=== PATIENT | female | born 1960 | race Caucasian/White ===

== ENCOUNTER 2019-04-16 10:16 | Emergency (ER) | payer OTHER, MEDICAID, SELFPAY ==
[2019-04-16 10:25] VITALS: BP 139/93; PULSE 83; RESP 18; TEMP 36.9; O2SAT 98
[2019-04-16 11:11] VITALS: BP 117/77; PULSE 70; RESP 18; O2SAT 100
--- NOTE | 2019-04-16 11:18 | DI.US.S_ITS ---
PROCEDURE: US PERIPH VENOUS UP EXTREM LT INDICATIONS: JUGULAR VEIN ENLARGEMENT TECHNIQUE: Real-time imaging, as well as color and pulse Doppler interrogation, was performed of the left upper extremity deep veins from the inferior neck to the antecubital fossa. COMPARISON: None. FINDINGS: The internal jugular vein, visualized portions of the subclavian vein, axillary, and brachial veins are free of intraluminal thrombus. Where physically possible, the veins are normally compressible. Color and pulse Doppler demonstrate normal intraluminal flow, with expected phasicity and pulsatility. Additional scanning of the cephalic and basilic veins of the superficial system demonstrate normal compressibility, without thrombus. IMPRESSION: Negative for deep venous thrombosis. Dictated by: Roberto Mendoza M.D. on 04/16/2019 at 12:08 Approved by: Roberto Mendoza M.D. on 04/16/2019 at 12:09
--- NOTE | 2019-04-16 11:24 | ED_ITS ---
HPI - Skin/Abscess/Foreign Bdy <HELEN Everett - Last Filed: 04/16/19 20:20> General Chief complaint: Skin/Abscess/Foreign Body Stated complaint: POSSIBLE CLOT Time Seen by Provider: 04/16/19 11:01 Source: patient Mode of arrival: ambulatory Limitations: no limitations History of Present Illness HPI narrative: 58-year-old female with history of hypertension and anxiety, presents emergency department today stating she noticed an increase in size of her left jugular vein since April 07 after taking a picture. States today she woke up and experienced some aching 2/10 pain in her lower left forearm that was better when she puts pressure on her arm. Patient was worried about cardiac issues as her mother and father both underwent triple bypass surgeries. Patient denies headaches, double vision, vision loss, facial or asymmetry, difficulty swallowing, neck pain, chest pain, shortness of breath, abdominal pain, nausea, vomiting, stool changes, or fevers. Patient also denies swelling of the legs or orthopnea. She states she feels better already since she has been here waiting in the emergency department. Related Data Home Medications Medication Instructions Recorded Confirmed clonidine HCl PO 04/15/19 04/15/19 Allergies Allergy/AdvReac Type Severity Reaction Status Date / Time No Known Drug Allergies Allergy Verified 04/15/19 18:00 Review of Systems <HELEN Everett - Last Filed: 04/16/19 20:20> Review of Systems REVIEW OF SYSTEMS: GENERAL: Denies fever, chills, malaise, or wt. loss. HENT: No head trauma, hearing loss, rhinorrhea, epistaxis, sinus pressure, sore throat, or dysphagia. EYES: No loss of vision, double vision, eye pain, or irritation. NECK: Complains of swollen neck pain, see HPI. CARDIOVASCULAR: No chest pain, palpitations, edema, syncope, or orthopnea. RESPIRATORY: No shortness of breath, cough, or wheeze. GASTROINTESTINAL: No change in appetite, nausea, vomiting, stool changes, or melena. GENITOURINARY: No flank pain, urinary incontinence, hesitancy, frequency, or dysuria. No vaginal discharge or dyspareunia. MUSCULOSKELETAL: Complains of lower arm pain comes HPI. INTEGUMENTARY: No rash, lesions, or pruritus. NEURO: No numbness, tingling, memory loss, confusion, or headaches. PSYCH: No behavior or mood changes. ENDOCRINOLOGY: No hair loss of temperature intolerance. HEMATOLOGY: No easy bruising. LYMPHATIC: No lymphadenopathy. PFSH <HELEN Everett - Last Filed: 04/16/19 20:20> Medical History HTN (hypertension) (Acute) Social History Smoking Status: Never smoker Social History Smoking Status: Never smoker Exam <HELEN Everett - Last Filed: 04/16/19 20:20> Initial Vital Signs Initial Vital Signs: Vital Signs Temperature 98.4 F 04/16/19 10:25 Pulse Rate 83 04/16/19 10:25 Respiratory Rate 18 04/16/19 10:25 Blood Pressure 139/93 H 04/16/19 10:25 Pulse Oximetry 98 04/16/19 10:25 PHYSICAL EXAMINATION: GENERAL: Well groomed, alert, and cooperative. Answers questions promptly and appropriately. Vital signs noted. HENT: Normocephalic, atraumatic. Ear canals patent, tympanic membranes normal without irritation or effusion, crisp light reflex present. Oral mucosa is pink and moist, no caries or lesions present. Pharynx without erythema. EYES: PERRLA, conjunctiva pink, sclera white, no periorbital swelling. NECK: Full range of motion, nontender to palpation. Very slight distention of left jugular vein, the slightly increases when she turns her head. LYMPH: No lymphadenopathy. CHEST: Normal to inspection and without deformities. CARDIOVASCULAR: S1 and S2 sounds normal. Regular rate and rhythm, no murmurs, clicks, or bruits. No pedal edema. RESPIRATORY: Normal respiratory rate, trachea midline, airway patent. No stridor, nasal flaring or accessory muscle use. Lungs are clear in all alexander without wheeze, rhonchi, or crackles. GASTROINTESTINAL: Bowel sounds normoactive. Abdomen is soft and non-tender. No organomegaly. MUSCULOSKELETAL: Normal gait and coordination. Equal tone and mass bilaterally. No spinal tenderness or deformities. EXTREMITIES: CMS intact. Moves all extremities. SKIN: Warm, dry, soft, appropriate color for ethnicity. No lesions, rashes, or wounds. NEURO: Alert and Oriented X 3. Good coordination. No ataxia, or sensory deficits, or cognitive issues. PSYCH: Initially patient appears very anxious, after test results were relayed to her she appeared much more calm. Patient also endorsed that she was feeling much better after the test results. <Tammy Gonsales DO - Last Filed: 04/19/19 18:05> Initial Vital Signs Initial Vital Signs: Vital Signs Temperature 98.4 F 04/16/19 10:25 Pulse Rate 83 04/16/19 10:25 Respiratory Rate 18 04/16/19 10:25 Blood Pressure 139/93 H 04/16/19 10:25 Pulse Oximetry 98 04/16/19 10:25 Course <HELEN Everett - Last Filed: 04/16/19 20:20> Course Narrative: The patient stated that she felt much better, she did not have any pain after all her test results were given. Patient also stated that she was leaving early and not waiting for the ultrasound result as she had to leave for her appointment. Results were called to over the phone a patient, patient verbalized understanding of the importance of follow-up. Orders Ordered: ED Orders 04/16/19 11:18 US periph venous up extrem lt Stat 04/16/19 11:35 Complete Blood Count AUTO DIFF Stat Comprehensive Metabolic Panel Stat Lipase Stat Troponin & CK Cardiac Panel Stat 04/16/19 11:41 EKG-12 Lead Stat Consultations Consultation #1: Patient staffed with Dr. Gonsales. Vital Signs - 8 hr 04/16/19 10:25 04/16/19 11:11 Temperature 98.4 F Pulse Rate 83 70 Respiratory Rate 18 18 Blood Pressure 139/93 H Blood Pressure [Right Arm] 117/77 Pulse Oximetry 98 100 <Tammy Gonsales DO - Last Filed: 04/19/19 18:05> Orders Ordered: ED Orders 04/16/19 11:18 US periph venous up extrem lt Stat 04/16/19 11:35 Complete Blood Count AUTO DIFF Stat Comprehensive Metabolic Panel Stat Lipase Stat Troponin & CK Cardiac Panel Stat 04/16/19 11:41 EKG-12 Lead Stat Vital Signs - 8 hr 04/16/19 10:25 04/16/19 11:11 Temperature 98.4 F Pulse Rate 83 70 Respiratory Rate 18 18 Blood Pressure 139/93 H Blood Pressure [Right Arm] 117/77 Pulse Oximetry 98 100 MDM - Skin/Abscess/Foreign Bdy <Lena SegoviaHELEN - Last Filed: 04/16/19 20:20> Differential Diagnosis Likely abscess of skin or subcutaneous tissue Medical Records Attestation: I reviewed the patient's medical records. Lab Data Attestation: I reviewed the patient's lab results. Result diagrams: 04/16/19 11:35 04/16/19 11:35 Lab Results 04/16/19 04/16/19 Range/Units 11:35 11:35 WBC 6.5 (4.5-11.0) X10^3/uL RBC 4.53 (4.0-5.2) X10^6/uL Hgb 13.7 (12.0-16.0) g/dL Hct 40.7 (36-46) % MCV 90.0 (80-100) fL MCH 30.3 (26-34) PG MCHC 33.7 (30-36) % RDW 13.6 (11.6-14.8) % Plt Count 316 (150-400) X10^3/uL Neut % (Auto) 59.4 (50-75) % Lymph % (Auto) 26.8 (25-40) % Fleming % (Auto) 8.4 (3-14) % Eos % (Auto) 4.1 H (2-4) % Baso % (Auto) 1.3 (0-2) % Neut # (Auto) 3800 (1114-9837) /uL Lymph # (Auto) 1700 (5003-8790) /uL Fleming # (Auto) 500 (0-900) /uL Eos # (Auto) 300 (0-450) /uL Baso # (Auto) 100 (0-100) /uL Sodium 142 (137-145) mmol/L Potassium 5.0 (3.4-5.1) mmol/L Chloride 107 (98-107) mmol/L Carbon Dioxide 30 (22-32) mmol/L BUN 17 (7-17) mg/dL Creatinine 0.70 (0.52-1.04) mg/dL Estimated GFR > 60.0 (>60) mL/min BUN/Creatinine Ratio 24.3 H (6-22) Glucose 91 (80-110) mg/dL Calcium 9.3 (8.4-10.2) mg/dL Total Bilirubin 0.4 (0.2-1.3) mg/dL AST 27 (14-36) IU/L ALT 20 (9-52) IU/L Alkaline Phosphatase 76 (38-126) U/L Total Creatine Kinase 53 (30-135) U/L CK-MB (CK-2) TNP CK-MB (CK-2) Rel Index TNP Troponin I < 0.012 (0.01-0.034) ng/mL Total Protein 7.5 (6.3-8.2) g/dL Albumin 4.2 (3.5-5.0) g/dL Globulin 3.3 (1.7-4.1) g/dL Albumin/Globulin Ratio 1.3 (1.0-2.8) Lipase 151 (23-300) U/L Imaging Data LUE Ultrasound: Radiologist's impression: [address] [address] Ultrasound Report Signed Patient: Ramona Greenwood [facility]#: [id number] : 9Acct:[id number] Age/Sex: 58 / FDate of Service: 04/16/19 Loc: ED Accession Number: [id number] Procedure: US periph venous up extrem lt Ordering Provider: Lena Segovia PROCEDURE: US PERIPH VENOUS UP EXTREM LT INDICATIONS: JUGULAR VEIN ENLARGEMENT TECHNIQUE: Real-time imaging, as well as color and pulse Doppler interrogation, was performed of the left upper extremity deep veins from the inferior neck to the antecubital fossa. COMPARISON: None. FINDINGS: The internal jugular vein, visualized portions of the subclavian vein, axillary, and brachial veins are free of intraluminal thrombus. Where physically possible, the veins are normally compressible. Color and pulse Doppler demonstrate normal intraluminal flow, with expected phasicity and pulsatility. Additional scanning of the cephalic and basilic veins of the superficial system demonstrate normal compressibility, without thrombus. IMPRESSION: Negative for deep venous thrombosis. Dictated by: Roberto Mendoza M.D. on 04/16/2019 at 12:08 Approved by: Roberto Mendoza M.D. on 04/16/2019 at 12:09 [facility] Narrative Medical decision making narrative: Unsure exact etiology, however less likely cardiac in nature as patient's arm pain was in the lower forearm, she did not experience other symptoms such as chest pain or shortness of breath or dropping, cardiac enzymes were normal, EKG was, a patient started to feel much better after the results were back. Less likely embolism due to negative ultrasound. Less likely fluid overload due to lack of orthopnea, shortness of breath, swelling in her legs, or extensive cardiac or pulmonary history. Strict return precautions given and follow-up instructions discussed. <Tammy Gonsales, DO - Last Filed: 04/19/19 18:05> Lab Data Lab Results 04/16/19 04/16/19 Range/Units 11:35 11:35 WBC 6.5 (4.5-11.0) X10^3/uL RBC 4.53 (4.0-5.2) X10^6/uL Hgb 13.7 (12.0-16.0) g/dL Hct 40.7 (36-46) % MCV 90.0 (80-100) fL MCH 30.3 (26-34) PG MCHC 33.7 (30-36) % RDW 13.6 (11.6-14.8) % Plt Count 316 (150-400) X10^3/uL Neut % (Auto) 59.4 (50-75) % Lymph % (Auto) 26.8 (25-40) % Fleming % (Auto) 8.4 (3-14) % Eos % (Auto) 4.1 H (2-4) % Baso % (Auto) 1.3 (0-2) % Neut # (Auto) 3800 (8086-5123) /uL Lymph # (Auto) 1700 (5030-2316) /uL Fleming # (Auto) 500 (0-900) /uL Eos # (Auto) 300 (0-450) /uL Baso # (Auto) 100 (0-100) /uL Sodium 142 (137-145) mmol/L Potassium 5.0 (3.4-5.1) mmol/L Chloride 107 (98-107) mmol/L Carbon Dioxide 30 (22-32) mmol/L BUN 17 (7-17) mg/dL Creatinine 0.70 (0.52-1.04) mg/dL Estimated GFR > 60.0 (>60) mL/min BUN/Creatinine Ratio 24.3 H (6-22) Glucose 91 (80-110) mg/dL Calcium 9.3 (8.4-10.2) mg/dL Total Bilirubin 0.4 (0.2-1.3) mg/dL AST 27 (14-36) IU/L ALT 20 (9-52) IU/L Alkaline Phosphatase 76 (38-126) U/L Total Creatine Kinase 53 (30-135) U/L CK-MB (CK-2) TNP CK-MB (CK-2) Rel Index TNP Troponin I < 0.012 (0.01-0.034) ng/mL Total Protein 7.5 (6.3-8.2) g/dL Albumin 4.2 (3.5-5.0) g/dL Globulin 3.3 (1.7-4.1) g/dL Albumin/Globulin Ratio 1.3 (1.0-2.8) Lipase 151 (23-300) U/L Discharge Plan Departure Patient Disposition: Home Clinical Impression: Vein symptom Discharge Date/Time: 04/16/19 13:10 Interventions: ED Discharge Assessment Last Done: 04/16/19 13:08 Activity Restrictions/Additional Instructions: Thank you for entrusting me with your care today. As discussed, your blood work or EKG did not show any cardiac issues at this time. However, you're ultrasound result was not back when you chose to leave. We will call you if something is p ositive on your imaging. Please follow up with your primary care provider for further testing if symptoms continue. Please return emergency department if you develops chest pain, shortness of breath, syncope, dizziness, or slurred speech. Prescriptions: No Action clonidine HCl PO RF: 0
[2019-04-16 11:50] LABS: Add Manual Diff / Slide Review NO; Basophils Absolute Auto 100 /uL (0-100); Basophils Percent Auto 1.3 % (0-2); Eosinophils Absolute Auto 300 /uL (0-450); Eosinophils Percent Auto 4.1 % (2-4); Hematocrit 40.7 % (36-46); Hemoglobin 13.7 g/dL (12.0-16.0); Lymphocytes Absolute Auto 1700 /uL (1100-4500); Lymphocytes Percent Auto 26.8 % (25-40); Mean Corpuscular HGB Conc 33.7 % (30-36); Mean Corpuscular Hemoglobin 30.3 PG (26-34); Monocytes Absolute Auto 500 /uL (0-900); Monocytes Percent Auto 8.4 % (3-14); Neutrophils Absolute Auto 3800 /uL (1500-7000); Neutrophils Percent Auto 59.4 % (50-75); Platelet Count 316 X10^3/uL (150-400); Red Blood Cell Count 4.53 X10^6/uL (4.0-5.2); Red Cell Distribution Width 13.6 % (11.6-14.8); White Blood Cell Count 6.5 X10^3/uL (4.5-11.0)
[2019-04-16 12:00] VITALS: BP 141/84; PULSE 66; O2SAT 97
[2019-04-16 12:01] LABS: Alanine Aminotransferase 20 IU/L (9-52); Albumin 4.2 g/dL (3.5-5.0); Albumin Globulin Ratio 1.3 (1.0-2.8); Alkaline Phosphatase 76 U/L (38-126); Aspartate Aminotransferase 27 IU/L (14-36); BUN Creatinine Ratio 24.3 (6-22); Bilirubin Total 0.4 mg/dL (0.2-1.3); Blood Urea Nitrogen 17 mg/dL (7-17); Calcium 9.3 mg/dL (8.4-10.2); Carbon Dioxide 30 mmol/L (22-32); Chloride 107 mmol/L (98-107); Creatine Kinase 53 U/L (30-135); Estimated Glomerular Filt Rate > 60.0 mL/min (>60); Globulin 3.3 g/dL (1.7-4.1); Glucose 91 mg/dL (80-110); HEMOLYSIS < 15 (0-50); Lipase 151 U/L (23-300); Sodium 142 mmol/L (137-145); Total Protein 7.5 g/dL (6.3-8.2)
[2019-04-16 12:13] LABS: Troponin I < 0.012 ng/mL (0.01-0.034)
== END 2019-04-16 13:10 | disposition home or self-care (01) ==
PROVIDERS: Emergency Provider Nurse Practitioner
DX: R09.89 Other specified symptoms and signs involving the circulatory and respiratory systems (principal)
CPT/HCPCS: 36415; 80053; 82550; 83690; 84484; 85025; 93005; 93971; 99282; 99285

== ENCOUNTER → 2021-05-15 18:55 | Outpatient (CLI) | payer OTHER, SELFPAY ==
[2021-05-15 19:35] LABS: COVID19 -Nasal RAPID Negative (Negative)
== END ==
PROVIDERS: Visit Provider Student in an Organized Health Care Education/Training Program
DX: R05 Cough (principal); R09.81 Nasal congestion; N39.0 Urinary tract infection, site not specified; Z20.822 Contact with and (suspected) exposure to COVID-19
CPT/HCPCS: 87077; 87086; 87186; 87635

== ENCOUNTER → 2021-07-08 13:19 | Outpatient (CLI) | payer OTHER, SELFPAY ==
[2021-07-08 19:51] LABS: COVID19 -Nasal RAPID Negative (Negative)
== END ==
PROVIDERS: Visit Provider Nurse Practitioner Family
DX: Z20.822 Contact with and (suspected) exposure to COVID-19 (principal)
CPT/HCPCS: 87635

== ENCOUNTER → 2021-08-14 18:46 | Outpatient (CLI) | payer OTHER, SELFPAY | PROVIDERS: Referring Provider Internal Medicine; Visit Provider Internal Medicine | DX: Z23 Encounter for immunization (principal) | CPT/HCPCS: 90471; 90686 ==

== ENCOUNTER → 2021-09-02 14:37 | Outpatient (CLI) | payer OTHER, SELFPAY ==
[2021-09-02 16:14] LABS: COVID19 -Nasal RAPID Negative (Negative)
== END ==
PROVIDERS: Visit Provider Physician Assistant
DX: Z20.822 Contact with and (suspected) exposure to COVID-19 (principal); R06.89 Other abnormalities of breathing; R50.9 Fever, unspecified; R19.7 Diarrhea, unspecified; R53.83 Other fatigue
CPT/HCPCS: 87635

== ENCOUNTER → 2021-09-03 18:45 | Outpatient (CLI) | payer OTHER, SELFPAY ==
[2021-09-03 19:45] LABS: COVID-19 CEPHEID PCR (VTM/NP) Negative (Negative)
== END ==
PROVIDERS: Visit Provider Physician Assistant
DX: Z20.822 Contact with and (suspected) exposure to COVID-19 (principal)
CPT/HCPCS: U0003

== ENCOUNTER → 2021-09-03 18:47 | Outpatient (CLI) | payer OTHER, SELFPAY ==
--- NOTE | 2021-09-03 18:51 | DI.RAD.S_ITS ---
PROCEDURE: XR CHEST 2V INDICATIONS: cough, SOB TECHNIQUE: 2 views of the chest were acquired. COMPARISON: None. FINDINGS: Surgical changes and devices: None. Lungs and pleura: There is mild blunting of the left costophrenic angle that may be secondary to scarring or small pleural effusion. No focal pulmonary consolidation is seen. Mediastinum: Mediastinal contours are normal. Heart size is mildly enlarged. Bones and chest wall: No suspicious bony abnormalities. Soft tissues appear unremarkable. IMPRESSION: Blunting of the left costophrenic angle may represent pleural thickening or scarring versus a small pleural effusion. Mild cardiomegaly. Dictated by: Adriel Drake M.D. on 09/03/2021 at 19:53 Approved by: Adriel Drake M.D. on 09/03/2021 at 19:54
== END ==
PROVIDERS: Referring Provider Physician Assistant; Visit Provider Physician Assistant
DX: J06.9 Acute upper respiratory infection, unspecified (principal); I51.7 Cardiomegaly; Z20.822 Contact with and (suspected) exposure to COVID-19
CPT/HCPCS: 71046; U0003

== ENCOUNTER 2022-01-31 13:57 | Emergency (ER) | payer OTHER, SELFPAY ==
[2022-01-31] VITALS (17 sets, daily range): BP systolic 114–163; BP diastolic 81–120; PULSE 83–110; RESP 18–33; TEMP 37.4; O2SAT 91–97; BMI 24.7
--- NOTE | 2022-01-31 14:11 | DI.RAD.S_ITS ---
PROCEDURE: XR CHEST 1V INDICATIONS: chest pain TECHNIQUE: One view of the chest was acquired. COMPARISON: [facility], CR, XR CHEST 2 VIEWS, 11/19/2021, 9:18. [facility], CR, XR CHEST 2V, 09/03/2021, 18:43. FINDINGS: Surgical changes and devices: None. Lungs and pleura: There is blunting at the bilateral costophrenic sulci suggesting either small effusions or pleural scarring. There is diffuse interstitial prominence. Mediastinum: Mediastinal contours appear normal. Heart size is markedly enlarged, as before. Bones and chest wall: No suspicious bony lesions. Overlying soft tissues appear unremarkable. IMPRESSION: Cardiomegaly, interstitial prominence, and questionable small effusions versus pleural thickening. Radiographic findings suggest congestive failure. Dictated by: Sheila Broussard M.D. on 01/31/2022 at 14:31 Approved by: Sheila Broussard M.D. on 01/31/2022 at 14:32
[2022-01-31 14:25] LABS: Add Manual Diff / Slide Review NO; Basophils Absolute Auto 100 /uL (0-100); Basophils Percent Auto 1.3 % (0-2); Eosinophils Absolute Auto 200 /uL (0-450); Eosinophils Percent Auto 1.8 % (2-4); Hematocrit 47.7 % (36-46); Hemoglobin 15.7 g/dL (12.0-16.0); Lymphocytes Absolute Auto 1800 /uL (1100-4500); Lymphocytes Percent Auto 18.5 % (25-40); Mean Corpuscular HGB Conc 32.8 % (30-36); Mean Corpuscular Hemoglobin 29.4 PG (26-34); Mean Corpuscular Volume 89.8 fL (80-100); Monocytes Absolute Auto 500 /uL (0-900); Monocytes Percent Auto 5.1 % (3-14); Neutrophils Absolute Auto 7000 /uL (1500-7000); Neutrophils Percent Auto 73.3 % (50-75); Platelet Count 303 X10^3/uL (150-400); Red Blood Cell Count 5.32 X10^6/uL (4.0-5.2); Red Cell Distribution Width 13.8 % (11.6-14.8); White Blood Cell Count 9.5 X10^3/uL (4.5-11.0)
--- NOTE | 2022-01-31 14:31 | ED_ITS ---
HPI - Chest Pain General Chief Complaint: Chest Pain Stated Complaint: SOB, chest pains, abd pains rt, strange ekg Time Seen by Provider: 01/31/22 14:08 Source: patient Mode of arrival: Ambulatory Limitations: no limitations History of Present Illness HPI narrative: Patient was at [facility] urgent care this morning for ongoing shortness of breath with exertion as well as laying flat. Occasional chest discomfort. Has felt very tired and fatigued. Has family history of coronary disease. Patient has also been under lot of stress going through a difficult time with her partner. Blood pressure noted. Patient is anxious. EKG noted and compared to last year. Related Data Home Medications Medication Instructions Recorded Confirmed clonidine HCl PO 04/15/19 09/03/21 Allergies Allergy/AdvReac Type Severity Reaction Status Date / Time No Known Drug Allergies Allergy Verified 01/31/22 17:07 Review of Systems Review of Systems Narrative: GENERAL: Denies chills, fatigue, malaise, fever, sweats. HEENT: Denies sinus pain, ear pain, sore throat RESPIRATORY: Positive for dyspnea, negative cough CARDIOVASCULAR: Positive for chest pain, palpitations GASTROINTESTINAL: Denies nausea, vomiting, abdominal pain : Denies dysuria, frequency, hematuria MUSCULOSKELETAL: denies muscle or bony pain SKIN: Denies rash, skin lesions NEUROLOGIC: Denies weakness, numbness ROS Unobtainable: All systems reviewed & are unremarkable except as noted in HPI and below Patient History Medical History (Updated 01/31/22 @ 15:33 by Avelino Limon MD) HTN (hypertension) Social History Smoking Status: Current some day smoker Smoking Status: Current some day smoker alcohol intake frequency: a few times a week Substance Use Type: does not use Exam Narrative Exam Narrative: GENERAL: in no distress, not toxic not dyspneic HEAD: Normocephalic. EYES: Pupils equal round No scleral icterus. ENT: Mucous membranes moist. NECK: Trachea midline. CARDIOVASCULAR: Regular rate and rhythm without murmurs RESPIRATORY: Clear to auscultation. Breath sounds equal bilaterally. No wheezes, rales, or rhonchi. GASTROINTESTINAL: Abdomen soft, non-tender EXTREMITIES: No gross deformities. BACK: No flank tenderness. NEURO: AOx4. SKIN: Warm and dry PSYCH: Is anxious, is cooperative Initial Vital Signs Initial Vital Signs: Vital Signs Pulse Rate 110 H 01/31/22 14:05 Respiratory Rate 19 01/31/22 14:05 Blood Pressure 163/120 H 01/31/22 14:05 Pulse Oximetry 96 01/31/22 14:05 Course Course Course Narrative: No new issues during course of stay. Patient does agree for admit/transfer, likely transfer as we do not have cardiology services available this weekend. Patient understands will need transfer for stress test and echocardiogram Orders Ordered: Discontinued Medications Alprazolam (Alprazolam 0.5 Mg Tablet) 0.5 mg PO NOW ONE Stop: 01/31/22 14:30 Last Admin: 01/31/22 14:38 Dose: 0.5 mg Documented by: MINGO Aspirin (Aspirin 81 Mg Chew Tab) 324 mg PO NOW ONE Stop: 01/31/22 14:30 Last Admin: 01/31/22 14:36 Dose: 324 mg Documented by: MINGO Heparin Sodium (Porcine) (Heparin 5,000 Unit/Ml Vial) 4,900 unit 80 unit/kg (4900 unit) IV NOW ONE Stop: 01/31/22 16:00 Last Admin: 01/31/22 16:31 Dose: 4,900 unit Documented by: MINGO Heparin Sodium/Dextrose (Heparin Drip) 25,000 unit in 500 mls @ 14.696 mls/hr IV CONT MARIPOSA; Protocol Last Titration: 01/31/22 20:35 Dose: 0 units/kg/hr, 0 mls/hr Documented by: Admin: 01/31/22 16:35 Dose: 12 units/kg/hr, 14.696 mls/hr Documented by: MINGO Nitroglycerin (Nitroglycerin Oint 1 Inch/Gm Oint...G.) 1 inch TOP NOW ONE Stop: 01/31/22 14:30 Last Admin: 01/31/22 14:38 Dose: 1 inch Documented by: MINGO Reevaluation(s) Reevaluation #1: Blood pressure improved. Patient much more relaxed. No chest pain at this time. Reviewed results with patient agrees for transfer. We do not have cardiology services here this weekend or stress test or echocardiogram Time: 15:33 Consultations Consultation #1: Spoke with [facility] Dr. Amos. Appropriate to admit to hospitalist for stress test. Appropriate to start heparin given EKG changes as well as slight change in troponin. Time: 15:45 Consultation #2: Spoke with hospitalist, Dr. Lindsay, will accept patient at [facility] Time: 17:23 Vital Signs Vital signs: Vital Signs - 8 hr 01/31/22 14:05 01/31/22 14:06 01/31/22 14:30 Temperature 99.3 F Pulse Rate 110 H 104 H 100 H Respiratory Rate 19 25 H 33 H Blood Pressure 163/120 H 163/120 H Pulse Oximetry 96 97 94 01/31/22 14:31 01/31/22 15:00 01/31/22 15:30 Temperature Pulse Rate 99 H 92 H 86 Respiratory Rate 26 H 23 27 H Blood Pressure 140/118 H 129/89 121/81 Pulse Oximetry 95 94 94 01/31/22 16:00 Temperature Pulse Rate 91 H Respiratory Rate 24 Blood Pressure 114/86 Pulse Oximetry 94 MDM - Chest Pain Differential Diagnosis Differential diagnosis: Likely stable angina, unstable angina pectoris and atyp ical chest pain Lab Data Result diagrams: 01/31/22 14:07 01/31/22 14:07 Labs: Lab Results 01/31/22 01/31/22 01/31/22 Range/Units 14:07 14:07 14:07 WBC 9.5 (4.5-11.0) X10^3/uL RBC 5.32 H (4.0-5.2) X10^6/uL Hgb 15.7 (12.0-16.0) g/dL Hct 47.7 H (36-46) % MCV 89.8 (80-100) fL MCH 29.4 (26-34) PG MCHC 32.8 (30-36) % RDW 13.8 (11.6-14.8) % Plt Count 303 (150-400) X10^3/uL Neut % (Auto) 73.3 (50-75) % Lymph % (Auto) 18.5 L (25-40) % [place] % (Auto) 5.1 (3-14) % Eos % (Auto) 1.8 L (2-4) % Baso % (Auto) 1.3 (0-2) % Neut # (Auto) 7000 (2540-1213) /uL Lymph # (Auto) 1800 (1643-2648) /uL [place] # (Auto) 500 (0-900) /uL Eos # (Auto) 200 (0-450) /uL Baso # (Auto) 100 (0-100) /uL APTT 31 (26.4-36.2) SECONDS Sodium 140 (137-145) mmol/L Potassium 4.5 (3.4-5.1) mmol/L Chloride 107 (98-107) mmol/L Carbon Dioxide 25 (22-32) mmol/L BUN 15 (7-17) mg/dL Creatinine 0.84 (0.52-1.04) mg/dL Estimated GFR > 60 (>60) mL/min BUN/Creatinine Ratio 17.9 (6-22) Glucose 143 H (80-110) mg/dL Calcium 9.3 (8.4-10.2) mg/dL Magnesium 2.0 (1.6-2.3) mg/dL Total Bilirubin 0.9 (0.2-1.3) mg/dL AST 51 H (14-36) IU/L ALT 41 H (<35) IU/L Alkaline Phosphatase 141 H (38-126) U/L Total Creatine Kinase 61 (30-135) U/L CK-MB (CK-2) TNP CK-MB (CK-2) Rel Index TNP Troponin I 0.021 (0.01-0.034) ng/mL Total Protein 7.4 (6.3-8.2) g/dL Albumin 4.2 (3.5-5.0) g/dL Globulin 3.2 (1.7-4.1) g/dL Albumin/Globulin Ratio 1.3 (1.0-2.8) Lipase 98 (23-300) U/L SARS-CoV-2 (PCR) (Negative) 01/31/22 Range/Units 15:09 WBC (4.5-11.0) X10^3/uL RBC (4.0-5.2) X10^6/uL Hgb (12.0-16.0) g/dL Hct (36-46) % MCV (80-100) fL MCH (26-34) PG MCHC (30-36) % RDW (11.6-14.8) % Plt Count (150-400) X10^3/uL Neut % (Auto) (50-75) % Lymph % (Auto) (25-40) % [place] % (Auto) (3-14) % Eos % (Auto) (2-4) % Baso % (Auto) (0-2) % Neut # (Auto) (3926-7789) /uL Lymph # (Auto) (4970-5721) /uL [place] # (Auto) (0-900) /uL Eos # (Auto) (0-450) /uL Baso # (Auto) (0-100) /uL APTT (26.4-36.2) SECONDS Sodium (137-145) mmol/L Potassium (3.4-5.1) mmol/L Chloride (98-107) mmol/L Carbon Dioxide (22-32) mmol/L BUN (7-17) mg/dL Creatinine (0.52-1.04) mg/dL Estimated GFR (>60) mL/min BUN/Creatinine Ratio (6-22) Glucose (80-110) mg/dL Calcium (8.4-10.2) mg/dL Magnesium (1.6-2.3) mg/dL Total Bilirubin (0.2-1.3) mg/dL AST (14-36) IU/L ALT (<35) IU/L Alkaline Phosphatase (38-126) U/L Total Creatine Kinase (30-135) U/L CK-MB (CK-2) CK-MB (CK-2) Rel Index Troponin I (0.01-0.034) ng/mL Total Protein (6.3-8.2) g/dL Albumin (3.5-5.0) g/dL Globulin (1.7-4.1) g/dL Albumin/Globulin Ratio (1.0-2.8) Lipase (23-300) U/L SARS-CoV-2 (PCR) Negative (Negative) Imaging Data Chest x-ray: Radiologist's Impression: [address] [address] XRay Report Signed Patient: Ramona Greenwood MR#: [id number] : 1960 Acct:[id number] Age/Sex: 61 / F Date of Service: 01/31/22 Loc: ED Accession Number: [id number] ?? Procedure: XR chest 1V Ordering Provider: Avelino Limon MD PROCEDURE:? XR CHEST 1V ? INDICATIONS:? chest pain ? TECHNIQUE:? One view of the chest was acquired.? ? COMPARISON:? [facility], CR, XR CHEST 2 VIEWS, 11/19/2021, 9:18.? [facility], CR, XR CHEST 2V, 09/03/2021, 18:43. ? FINDINGS:? ? Surgical changes and devices:? None.? ? Lungs and pleura:? There is blunting at the bilateral costophrenic sulci suggesting either small effusions or pleural scarring.? There is diffuse interstitial prominence. ? Mediastinum:? Mediastinal contours appear normal.? Heart size is markedly enlarged, as before. ? Bones and chest wall:? No suspicious bony lesions.? Overlying soft tissues appear unremarkable.? ? IMPRESSION:? Cardiomegaly, interstitial prominence, and questionable small effusions versus pleural thickening.? Radiographic findings suggest congestive failure.? ? ? Dictated by: Sheila Broussard M.D. on 01/31/2022 at 14:31 ? ? Approved by: Sheila Broussard M.D. on 01/31/2022 at 14:32 ? ECG Data Interpretation: Sinus tachycardia rate [address] elevation. Compared to May 25, 2021 at 6:25 p.m. rate at 99 at that time with left bundle-branch block. MDM Narrative Medical decision making narrative: Appropriate for transfer has patient needs stress test and echocardiogram. We do not have cardiac services here today. Patient understands. We do not have stress test available today or tomorrow. Patient does have cardiac risk factors. Vital signs improved during course of stay. Heparin started an aspi rin given. I did review with candy separator hard as well as hospitalist for acceptance at [facility]. Critical Care Time Critical Care Time Attestation: Critical Care Time 35 minutes: Critical care time is separate from other billable procedures. This critical care time includes consultation with family and other consulting doctors, review of records, and interpretation of data from labs, EKGs, imaging, etc. Discharge Plan Departure Patient Disposition: [facility] Clinical Impression: Unstable angina pectoris Prescriptions: No Action clonidine HCl PO 0RF Referrals: Arline Stahl MD [Primary Care Provider] -
[2022-01-31] MEDS: ASPIRIN 81 MG CHEW TAB 324 MG PO (14:36)
[2022-01-31 14:38] LABS: Alanine Aminotransferase 41 IU/L (<35); Albumin 4.2 g/dL (3.5-5.0); Albumin Globulin Ratio 1.3 (1.0-2.8); Alkaline Phosphatase 141 U/L (38-126); Aspartate Aminotransferase 51 IU/L (14-36); BUN Creatinine Ratio 17.9 (6-22); Bilirubin Total 0.9 mg/dL (0.2-1.3); Blood Urea Nitrogen 15 mg/dL (7-17); Calcium 9.3 mg/dL (8.4-10.2); Carbon Dioxide 25 mmol/L (22-32); Chloride 107 mmol/L (98-107); Creatine Kinase 61 U/L (30-135); Estimated Glomerular Filt Rate > 60 mL/min (>60); Globulin 3.2 g/dL (1.7-4.1); Glucose 143 mg/dL (80-110); HEMOLYSIS < 15 (0-50); Lipase 98 U/L (23-300); Potassium 4.5 mmol/L (3.4-5.1); Sodium 140 mmol/L (137-145); Total Protein 7.4 g/dL (6.3-8.2)
[2022-01-31] MEDS: ALPRAZolam 0.5 MG TABLET PO (14:38)
[2022-01-31] MEDS: NITROGLYCERIN OINT 1 INCH/GM OINT...G. TOP (14:38)
[2022-01-31 14:49] LABS: Troponin I 0.021 ng/mL (0.01-0.034)
[2022-01-31 15:25] LABS: COVID19 -Nasal RAPID Negative (Negative)
[2022-01-31] MEDS: HEPARIN 5,000 UNIT/ML VIAL 4900 UNIT IV (16:31)
--- NOTE | 2022-01-31 16:33 | PC.NURSE ---
Verified heparin bolus with Carolin BRAR
[2022-01-31] MEDS: HEPARIN DRIP 25,000 UNIT/500 ML IV.SOLN 14.696 UNIT IV (16:35)
--- NOTE | 2022-01-31 16:40 | PC.NURSE ---
Heparin double verified with Uriel BRAR.
--- NOTE | 2022-01-31 16:40 | PC.NURSE ---
verified heparin drip with Carolin BRAR
[2022-01-31 16:42] LABS: PTT Partial Thromboplastin Tim 31 SECONDS (26.4-36.2)
--- NOTE | 2022-01-31 20:01 | PC.NURSE ---
Report called to Марина BRAR at [facility], extension [phone].
--- NOTE | 2022-01-31 20:35 | PC.NURSE ---
Heparin drip continued with ARMANDO BRAR.
== END 2022-01-31 20:35 | disposition short-term general hospital (02) ==
PROVIDERS: Emergency Provider Emergency Medicine; PCP Family Medicine
DX: I20.0 Unstable angina (principal); I10 Essential (primary) hypertension; F17.200 Nicotine dependence, unspecified, uncomplicated; Z20.822 Contact with and (suspected) exposure to COVID-19
CPT/HCPCS: 36415; 71045; 80053; 82550; 83690; 83735; 84484; 85025; 85730; 87635; 93005; 96365; 96366; 96376; 99284; 99285; 99291; C9803; J1644

== ENCOUNTER 2022-06-05 09:54 | Emergency (ER) | payer OTHER, SELFPAY ==
[2022-06-05] VITALS (10 sets, daily range): BP systolic 135–172; BP diastolic 62–79; PULSE 50–82; RESP 14–22; TEMP 36.9; O2SAT 95–100; BMI 25.2
--- NOTE | 2022-06-05 10:16 | DI.RAD.S_ITS ---
PROCEDURE: XR CHEST 2V INDICATIONS: shortness of breath TECHNIQUE: 2 views of the chest were acquired. COMPARISON: [facility], CR, XR CHEST 1V, 01/31/2022, 14:15. FINDINGS: Surgical changes and devices: None. Lungs and pleura: Lungs are clear. No pleural effusions or pneumothorax. Mediastinum: Mediastinal contours are normal. Heart size is normal. Bones and chest wall: No suspicious bony abnormalities. Soft tissues appear unremarkable. IMPRESSION: No acute cardiopulmonary abnormalities or focal airspace disease. Dictated by: Hema Nava M.D. on 06/05/2022 at 10:46 Approved by: Hema Nava M.D. on 06/05/2022 at 10:54
--- NOTE | 2022-06-05 10:35 | ED.SOB ---
HPI - SOB/Dyspnea General Chief Complaint: Shortness of Breath/Dyspnea Stated Complaint: Shortness of breath/Feeling bloated Time Seen by Provider: 06/05/22 10:13 Source: patient Mode of arrival: Ambulatory Limitations: no limitations History of Present Illness HPI Narrative: Patient is a 61-year-old female with history of congestive heart failure with recent EF of 12% and the defibrillator vest presenting today with shortness of breath for the last 4 days. She says that her EF went up to 30% she was able to take off her best 2 weeks ago. However she is having increased fatigue and shortness of breath worse over last few days. She denies any orthopnea. She has edema in her abdomen but not in her lower extremities. She denies any fever cough. She is followed by [facility]. She is on spironolactone furosemide and entresto. She denies any chest pain or palpitations. Related Data Home Medications Medication Instructions Recorded Confirmed clonidine HCl PO 04/15/19 09/03/21 Previous Rx's Medication Instructions Recorded empagliflozin 10 mg tablet 10 mg PO DAILY #30 tabs 06/05/22 (Jardiance) Allergies Allergy/AdvReac Type Severity Reaction Status Date / Time No Known Drug Allergies Allergy Verified 06/05/22 10:16 Review of Systems Review of Systems Narrative: GENERAL: Denies chills, fatigue, malaise, fever, sweats, travel HEENT: Denies sinus pain, ear pain, sore throat, difficulty swallowing, neck pain RESPIRATORY: See HPI CARDIOVASCULAR: See HPI GASTROINTESTINAL: Denies nausea, vomiting, abdominal pain, diarrhea, constipation, melena. : Denies dysuria, frequency, incontinence, hematuria, urinary retention, flank pain. MUSCULOSKELETAL: Denies weakness, joint pain, or bony pain SKIN: No rash, no erythema, no pruritus NEUROLOGIC: Denies weakness, dizziness, headache, numbness, change in speech, confusion PSYCHIATRIC: No concerning psychosocial issues. 12 point review of systems is negative except for those stated above and HPI Patient History Medical History (Updated 06/05/22 @ 13:01 by Jammie Hui DO) HTN (hypertension) Social History Smoking Status: Current some day smoker Smoking Status: Current some day smoker alcohol intake frequency: a few times a week Substance Use Type: does not use Exam Initial Vital Signs Initial Vital Signs: Vital Signs Temperature 98.5 F 06/05/22 10:10 Pulse Rate 65 06/05/22 10:10 Respiratory Rate 15 06/05/22 10:10 Blood Pressure 142/62 H 06/05/22 10:10 Pulse Oximetry 97 06/05/22 10:10 Oxygen Delivery Method 06/05/22 10:10 GENERAL: Alert slightly anxious 61-year-old HEENT: Head atraumatic,EOMI, pupils reactive, face symmetric, moist mucous membranes CARDIOVASCULAR: Regular rate and rhythm without murmurs, rubs or gallops. RESPIRATORY: Breath sounds equal bilaterally, no wheezes rales or rhonchi. ABDOMEN: Soft, nontender. Normoactive bowel sounds all 4 quadrants. No guarding or rebound. EXTREMITIES: Normal range of motion, no clubbing or edema. Neurovascularly intact NEUROLOGICAL: Alert and oriented x4.Normal gait and speech. SKIN: Warm, dry, no laceration, no petechiae, no rashes or lesions. Course Orders Ordered: ED Orders 06/05/22 11:42 CT abdomen pelvis wo con Stat Discontinued Medications Furosemide (Furosemide 40 Mg/4 Ml Vial) 40 mg IV NOW ONE Stop: 06/05/22 11:43 Last Admin: 06/05/22 12:00 Dose: 40 mg Documented By: ERNESTINA Vital Signs Vital signs: Vital Signs - 8 hr 06/05/22 11:56 06/05/22 11:56 06/05/22 12:00 Pulse Rate 56 L Respiratory Rate 22 Blood Pressure 172/72 H 135/70 Pulse Oximetry 99 06/05/22 12:00 06/05/22 12:30 06/05/22 12:30 Pulse Rate 50 L 50 L Respiratory Rate 22 22 Blood Pressure 135/79 Pulse Oximetry 99 96 06/05/22 13:01 Pulse Rate 82 Respiratory Rate 22 Blood Pressure Pulse Oximetry MDM - SOB/Dyspnea Lab Data Result diagrams: 06/05/22 10:31 06/05/22 10:31 Labs: Lab Results 06/05/22 06/05/22 06/05/22 Range/Units 10:31 10:31 10:31 WBC 8.9 (4.5-11.0) X10^3/uL RBC 4.32 (4.0-5.2) X10^6/uL Hgb 13.6 (12.0-16.0) g/dL Hct 40.6 (36-46) % MCV 93.8 (80-100) fL MCH 31.5 (26-34) PG MCHC 33.5 (30-36) % RDW 15.6 H (11.6-14.8) % Plt Count 359 (150-400) X10^3/uL Neut % (Auto) 64.1 (50-75) % Lymph % (Auto) 20.9 L (25-40) % Calloway % (Auto) 8.6 (3-14) % Eos % (Auto) 5.2 H (2-4) % Baso % (Auto) 1.2 (0-2) % Neut # (Auto) 5700 (3685-8390) /uL Lymph # (Auto) 1800 (7871-6613) /uL Calloway # (Auto) 800 (0-900) /uL Eos # (Auto) 500 H (0-450) /uL Baso # (Auto) 100 (0-100) /uL PT 11.2 (10.1-12.7) SECONDS INR 1.0 (0.9-1.3) D-Dimer (<500) ng/ml Sodium 138 (137-145) mmol/L Potassium 4.2 (3.4-5.1) mmol/L Chloride 104 (98-107) mmol/L Carbon Dioxide 28 (22-32) mmol/L BUN 17 (7-17) mg/dL Creatinine 0.86 (0.52-1.04) mg/dL Estimated GFR > 60 (>60) mL/min BUN/Creatinine Ratio 19.8 (6-22) Glucose 104 (80-110) mg/dL Lactate (0.7-2.1) mmol/L Calcium 9.2 (8.4-10.2) mg/dL Total Bilirubin 0.6 (0.2-1.3) mg/dL AST 45 H (14-36) IU/L ALT 42 H (<35) IU/L Alkaline Phosphatase 115 (38-126) U/L Total Creatine Kinase (30-135) U/L CK-MB (CK-2) CK-MB (CK-2) Rel Index Troponin I (0.01-0.034) ng/mL NT-Pro-B Natriuret Pep 411 H (<125) pg/mL Total Protein 7.8 (6.3-8.2) g/dL Albumin 4.5 (3.5-5.0) g/dL Globulin 3.3 (1.7-4.1) g/dL Albumin/Globulin Ratio 1.4 (1.0-2.8) Lipase (23-300) U/L SARS-CoV-2 (PCR) (Negative) 06/05/22 06/05/22 06/05/22 Range/Units 10:31 10:31 10:31 WBC (4.5-11.0) X10^3/uL RBC (4.0-5.2) X10^6/uL Hgb (12.0-16.0) g/dL Hct (36-46) % MCV (80-100) fL MCH (26-34) PG MCHC (30-36) % RDW (11.6-14.8) % Plt Count (150-400) X10^3/uL Neut % (Auto) (50-75) % Lymph % (Auto) (25-40) % Calloway % (Auto) (3-14) % Eos % (Auto) (2-4) % Baso % (Auto) (0-2) % Neut # (Auto) (8501-7350) /uL Lymph # (Auto) (3590-3855) /uL Calloway # (Auto) (0-900) /uL Eos # (Auto) (0-450) /uL Baso # (Auto) (0-100) /uL PT (10.1-12.7) SECONDS INR (0.9-1.3) D-Dimer (<500) ng/ml Sodium (137-145) mmol/L Potassium (3.4-5.1) mmol/L Chloride (98-107) mmol/L Carbon Dioxide (22-32) mmol/L BUN (7-17) mg/dL Creatinine (0.52-1.04) mg/dL Estimated GFR (>60) mL/min BUN/Creatinine Ratio (6-22) Glucose (80-110) mg/dL Lactate 1.3 (0.7-2.1) mmol/L Calcium (8.4-10.2) mg/dL Total Bilirubin (0.2-1.3) mg/dL AST (14-36) IU/L ALT (<35) IU/L Alkaline Phosphatase (38-126) U/L Total Creatine Kinase 82 (30-135) U/L CK-MB (CK-2) TNP CK-MB (CK-2) Rel Index TNP Troponin I < 0.012 (0.01-0.034) ng/mL NT-Pro-B Natriuret Pep (<125) pg/mL Total Protein (6.3-8.2) g/dL Albumin (3.5-5.0) g/dL Globulin (1.7-4.1) g/dL Albumin/Globulin Ratio (1.0-2.8) Lipase (23-300) U/L SARS-CoV-2 (PCR) Negative (Negative) 06/05/22 06/05/22 Range/Units 10:31 10:31 WBC (4.5-11.0) X10^3/uL RBC (4.0-5.2) X10^6/uL Hgb (12.0-16.0) g/dL Hct (36-46) % MCV (80-100) fL MCH (26-34) PG MCHC (30-36) % RDW (11.6-14.8) % Plt Count (150-400) X10^3/uL Neut % (Auto) (50-75) % Lymph % (Auto) (25-40) % Calloway % (Auto) (3-14) % Eos % (Auto) (2-4) % Baso % (Auto) (0-2) % Neut # (Auto) (8933-4658) /uL Lymph # (Auto) (2689-5286) /uL Calloway # (Auto) (0-900) /uL Eos # (Auto) (0-450) /uL Baso # (Auto) (0-100) /uL PT (10.1-12.7) SECONDS INR (0.9-1.3) D-Dimer 456 (<500) ng/ml Sodium (137-145) mmol/L Potassium (3.4-5.1) mmol/L Chloride (98-107) mmol/L Carbon Dioxide (22-32) mmol/L BUN (7-17) mg/dL Creatinine (0.52-1.04) mg/dL Estimated GFR (>60) mL/min BUN/Creatinine Ratio (6-22) Glucose (80-110) mg/dL Lactate (0.7-2.1) mmol/L Calcium (8.4-10.2) mg/dL Total Bilirubin (0.2-1.3) mg/dL AST (14-36) IU/L ALT (<35) IU/L Alkaline Phosphatase (38-126) U/L Total Creatine Kinase (30-135) U/L CK-MB (CK-2) CK-MB (CK-2) Rel Index Troponin I (0.01-0.034) ng/mL NT-Pro-B Natriuret Pep (<125) pg/mL Total Protein (6.3-8.2) g/dL Albumin (3.5-5.0) g/dL Globulin (1.7-4.1) g/dL Albumin/Globulin Ratio (1.0-2.8) Lipase 193 (23-300) U/L SARS-CoV-2 (PCR) (Negative) Imaging Data Chest x-ray: Radiologist's Impression: XRay Report Signed Patient: Ramona Greenwood MR#: [id number] : 1960 Acct:[id number] Age/Sex: 61 / F Date of Service: 06/05/22 Loc: Accession Number: [id number] ?? Procedure: XR chest 2V Ordering Provider: Jammie Hui D.O. PROCEDURE:? XR CHEST 2V ? INDICATIONS:? shortness of breath ? TECHNIQUE:? 2 views of the chest were acquired.? ? COMPARISON:? [facility], , XR CHEST 1V, 01/31/2022, 14:15. ? FINDINGS:? ? Surgical changes and devices:? None.? ? Lungs and pleura:? Lungs are clear.? No pleural effusions or pneumothorax.? ? Mediastinum:? Mediastinal contours are normal.? Heart size is normal.? ? Bones and chest wall:? No suspicious bony abnormalities.? Soft tissues appear unremarkable.? ? IMPRESSION:? No acute cardiopulmonary abnormalities or focal airspace disease. ? Dictated by: Hema Nava M.D. on 06/05/2022 at 10:46 ? ? CT scan - abdomen/pelvis: Radiologist's Impression: JOSEY Diaz [id number] CT Scan Report Signed Patient: Ramona Greenwood MR#: [id number] : 1960 Acct:[id number] Age/Sex: 61 / F Date of Service: 06/05/22 Loc: ED Accession Number: [id number] ?? Procedure: CT abdomen pelvis wo con Ordering Provider: Jammie Hui D.O. PROCEDURE:? CT ABDOMEN PELVIS WO CON ? INDICATIONS:? luq pain ab distention ? TECHNIQUE:? Noncontrast 5 mm thick sections acquired from the diaphragms to the symphysis.? 5 mm coronal and sagittal reformats were then performed.? For radiation dose reduction, the following was used:? automated exposure control, adjustment of mA and/or kV according to patient size.? ? COMPARISON:? None. ? FINDINGS: Image quality:? Excellent.? ? ABDOMEN:? Lung bases:? Minimal bibasilar atelectasis.? Lung bases are otherwise clear. Heart size is normal.? ? Solid organs: Liver: Liver is normal in size.? Gallbladder:? Gallbladder is unremarkable.? Pancreas: Pancreas is normal in contours.? No peripancreatic inflammation. Spleen: Spleen is normal in size.? No perisplenic inflammatory changes. Adrenal Glands: No adrenal nodules.? Kidneys/Ureters: Kidneys are normal in size, without hydronephrosis or nephrolithiasis.? Ureters are normal in course and caliber. ? Peritoneum and bowel:? Unenhanced bowel loops demonstrate normal wall thickness and caliber.? No free fluid or air.? Surgical clips noted in the right lower quadrant.? ? Nodes and vessels:? No retroperitoneal or mesenteric adenopathy by size criteria.? Aorta and inferior vena cava are normal in caliber.? Mild atherosclerotic calcifications. ? Miscellaneous:? Tiny fat containing umbilical hernia without acute inflammation.? ? ? PELVIS:? Genitourinary:? Urinary bladder thickness appears normal for degree of distention. No perivesicular inflammatory stranding. ? Miscellaneous:? No inguinal hernias or adenopathy.? ? Bones:? No acute vertebral body compression fractures. Multilevel spondylitic changes throughout the imaged spine.? No suspicious osseous lesions. ? IMPRESSION:? ? 1. CT abdomen and pelvis without acute abnormalities to explain patient's left upper quadrant abdominal pain and distension.? No evidence for obstruction or acute inflammatory changes. ? 2. No evidence for urolithiasis or obstructive uropathy.? The urinary bladder is moderately distended but otherwise unremarkable.? ? ? Dictated by: Hema Nava M.D. on 06/05/2022 at 12:13 ?? ECG Data Interpretation: Normal sinus rhythm rate 54 NH interval 146 QRS [address] changes Q-wave noted in lead 3 and AVF--new no from EKG January 2022 MDM Narrative Medical decision making narrative: The patient is complaining of fatigue and abdominal swelling and pain. Blood work is overall reassuring. She is not hypoxic chest x-ray is negative BNP minimally elevated at 400. She is given 1 dose of extra Lasix here in the ED. patient's history is certainly concerning as a life vest that was just taken off 2 weeks ago. She did run out of her Entresto medication which may be causing some of her symptoms. Certainly does not seem like she is fluid overloaded now. She was mildly tender on her abdominal exam I do not appreciate significant fluid overload. 12:55 Dr. [place] cardiology at [facility] updated patient's symptoms test results recommends patient start Jardiance 10 mg daily along with Entresto. They are trying to work with insurance to get this medication approved Discharge Plan Departure Patient Disposition: Home Clinical Impression: CHF (congestive heart failure) Instructions: DI for Heart Failure Activity Restrictions/Additional Instructions: *You have been diagnosed with congestive heart failure *What to do: At this time I spoke with cardiology at [facility]. They recommended adding another medication for you. They will call to check on you tomorrow. *Continue to take medications as directed Jardiance 10 mg once a day *Follow up with your primary care provider in 2-3 days or call [phone] Follow-up with , they should call you tomorrow however if you do not hear from them please call *Return to ER if you should have increasing chest pain shortness of breath abdominal pain or any new, worsening or concerning symptoms Prescriptions: New Jardiance 10 mg tablet 10 mg PO DAILY Qty: 30 0RF No Action clonidine HCl PO Referrals: Arline Stahl MD [Primary Care Provider] - Visit Report Forms: Patient Portal/API
[2022-06-05 10:42] LABS: Add Manual Diff / Slide Review NO; Basophils Absolute Auto 100 /uL (0-100); Basophils Percent Auto 1.2 % (0-2); Eosinophils Absolute Auto 500 /uL (0-450); Eosinophils Percent Auto 5.2 % (2-4); Hematocrit 40.6 % (36-46); Hemoglobin 13.6 g/dL (12.0-16.0); Lymphocytes Absolute Auto 1800 /uL (1100-4500); Lymphocytes Percent Auto 20.9 % (25-40); Mean Corpuscular HGB Conc 33.5 % (30-36); Mean Corpuscular Hemoglobin 31.5 PG (26-34); Mean Corpuscular Volume 93.8 fL (80-100); Monocytes Absolute Auto 800 /uL (0-900); Monocytes Percent Auto 8.6 % (3-14); Neutrophils Absolute Auto 5700 /uL (1500-7000); Neutrophils Percent Auto 64.1 % (50-75); Platelet Count 359 X10^3/uL (150-400); Red Blood Cell Count 4.32 X10^6/uL (4.0-5.2); Red Cell Distribution Width 15.6 % (11.6-14.8); White Blood Cell Count 8.9 X10^3/uL (4.5-11.0)
[2022-06-05 10:48] LABS: Prothrombin Time 11.2 SECONDS (10.1-12.7)
[2022-06-05 10:55] LABS: Alanine Aminotransferase 42 IU/L (<35); Albumin 4.5 g/dL (3.5-5.0); Albumin Globulin Ratio 1.4 (1.0-2.8); Alkaline Phosphatase 115 U/L (38-126); Aspartate Aminotransferase 45 IU/L (14-36); BUN Creatinine Ratio 19.8 (6-22); Bilirubin Total 0.6 mg/dL (0.2-1.3); Blood Urea Nitrogen 17 mg/dL (7-17); COVID19 -Nasal RAPID Negative (Negative); Calcium 9.2 mg/dL (8.4-10.2); Carbon Dioxide 28 mmol/L (22-32); Chloride 104 mmol/L (98-107); Creatine Kinase 82 U/L (30-135); Estimated Glomerular Filt Rate > 60 mL/min (>60); Globulin 3.3 g/dL (1.7-4.1); Glucose 104 mg/dL (80-110); HEMOLYSIS < 15 (0-50); Potassium 4.2 mmol/L (3.4-5.1); Sodium 138 mmol/L (137-145); Total Protein 7.8 g/dL (6.3-8.2)
[2022-06-05 10:56] LABS: Lactate (Lactic Acid) 1.3 mmol/L (0.7-2.1)
[2022-06-05 11:03] LABS: NT-proBNP (BNP-Adult 18+) 411 pg/mL (<125)
[2022-06-05 11:07] LABS: Troponin I < 0.012 ng/mL (0.01-0.034)
[2022-06-05 11:19] LABS: D Dimer 456 ng/ml (<500)
--- NOTE | 2022-06-05 11:42 | DI.CT.S_ITS ---
PROCEDURE: CT ABDOMEN PELVIS WO CON INDICATIONS: luq pain ab distention TECHNIQUE: Noncontrast 5 mm thick sections acquired from the diaphragms to the symphysis. 5 mm coronal and sagittal reformats were then performed. For radiation dose reduction, the following was used: automated exposure control, adjustment of mA and/or kV according to patient size. COMPARISON: None. FINDINGS: Image quality: Excellent. ABDOMEN: Lung bases: Minimal bibasilar atelectasis. Lung bases are otherwise clear. Heart size is normal. Solid organs: Liver: Liver is normal in size. Gallbladder: Gallbladder is unremarkable. Pancreas: Pancreas is normal in contours. No peripancreatic inflammation. Spleen: Spleen is normal in size. No perisplenic inflammatory changes. Adrenal Glands: No adrenal nodules. Kidneys/Ureters: Kidneys are normal in size, without hydronephrosis or nephrolithiasis. Ureters are normal in course and caliber. Peritoneum and bowel: Unenhanced bowel loops demonstrate normal wall thickness and caliber. No free fluid or air. Surgical clips noted in the right lower quadrant. Nodes and vessels: No retroperitoneal or mesenteric adenopathy by size criteria. Aorta and inferior vena cava are normal in caliber. Mild atherosclerotic calcifications. Miscellaneous: Tiny fat containing umbilical hernia without acute inflammation. PELVIS: Genitourinary: Urinary bladder thickness appears normal for degree of distention. No perivesicular inflammatory stranding. Miscellaneous: No inguinal hernias or adenopathy. Bones: No acute vertebral body compression fractures. Multilevel spondylitic changes throughout the imaged spine. No suspicious osseous lesions. IMPRESSION: 1. CT abdomen and pelvis without acute abnormalities to explain patient's left upper quadrant abdominal pain and distension. No evidence for obstruction or acute inflammatory changes. 2. No evidence for urolithiasis or obstructive uropathy. The urinary bladder is moderately distended but otherwise unremarkable. Dictated by: Hema Nava M.D. on 06/05/2022 at 12:13 Approved by: Hema Nava M.D. on 06/05/2022 at 12:23
[2022-06-05] MEDS: FUROSEMIDE 40 MG/4 ML VIAL IV (12:00)
[2022-06-05 12:41] LABS: Lipase 193 U/L (23-300)
== END 2022-06-05 13:15 | disposition home or self-care (01) ==
PROVIDERS: Emergency Provider Emergency Medicine; PCP Family Medicine
DX: I50.9 Heart failure, unspecified (principal); R19.00 Intra-abdominal and pelvic swelling, mass and lump, unspecified site; R79.89 Other specified abnormal findings of blood chemistry; Z79.01 Long term (current) use of anticoagulants
CPT/HCPCS: 36415; 71046; 74176; 80053; 82550; 83605; 83690; 83880; 84484; 85025; 85379; 85610; 87635; 93005; 96374; 99284; C9803; J1940

== ENCOUNTER 2022-09-12 16:50 | Emergency (ER) | payer OTHER, SELFPAY ==
[2022-09-12 17:03] VITALS: BP 125/93; PULSE 81; RESP 15; TEMP 36.6; O2SAT 98; BMI 27.1
--- NOTE | 2022-09-12 17:09 | DI.RAD.S_ITS ---
PROCEDURE: XR CHEST 1V INDICATIONS: Shortness of breath TECHNIQUE: One view of the chest was acquired. COMPARISON: [facility], CR, XR CHEST 1V, 01/31/2022, 14:15. [facility], CR, XR CHEST 2 VIEWS, 11/19/2021, 9:18. [facility], CR, XR CHEST 2V, 06/05/2022, 10:39. FINDINGS: Surgical changes and devices: None. Lungs and pleura: Lungs are clear. No pleural effusions or pneumothorax. Mediastinum: The cardiac contours are within normal limits. The aorta demonstrates calcification and tortuosity. Bones and chest wall: No suspicious bony lesions. Age-appropriate bony degenerative changes are seen. Overlying soft tissues appear unremarkable. IMPRESSION: Portable chest within normal limits. Dictated by: Roberto Mendoza M.D. on 09/12/2022 at 17:20 Approved by: Roberto Mendoza M.D. on 09/12/2022 at 17:21
[2022-09-12 17:36] LABS: Add Manual Diff / Slide Review NO; Basophils Absolute Auto 100 /uL (0-100); Basophils Percent Auto 0.8 % (0-2); Eosinophils Absolute Auto 600 /uL (0-450); Eosinophils Percent Auto 5.8 % (2-4); Hematocrit 38.6 % (36-46); Lymphocytes Absolute Auto 1800 /uL (1100-4500); Lymphocytes Percent Auto 17.1 % (25-40); Mean Corpuscular HGB Conc 33.8 % (30-36); Mean Corpuscular Hemoglobin 31.3 PG (26-34); Mean Corpuscular Volume 92.6 fL (80-100); Monocytes Absolute Auto 800 /uL (0-900); Monocytes Percent Auto 7.1 % (3-14); Neutrophils Absolute Auto 7400 /uL (1500-7000); Neutrophils Percent Auto 69.2 % (50-75); Platelet Count 347 X10^3/uL (150-400); Red Blood Cell Count 4.17 X10^6/uL (4.0-5.2); Red Cell Distribution Width 12.8 % (11.6-14.8); White Blood Cell Count 10.7 X10^3/uL (4.5-11.0)
[2022-09-12 17:43] LABS: Prothrombin Time 11.7 SECONDS (10.1-12.7)
[2022-09-12 17:47] LABS: Alanine Aminotransferase 32 IU/L (<35); Albumin 4.2 g/dL (3.5-5.0); Albumin Globulin Ratio 1.3 (1.0-2.8); Alkaline Phosphatase 123 U/L (38-126); Aspartate Aminotransferase 47 IU/L (14-36); BUN Creatinine Ratio 31.7 (6-22); Bilirubin Total 0.4 mg/dL (0.2-1.3); Blood Urea Nitrogen 26 mg/dL (7-17); Calcium 8.7 mg/dL (8.4-10.2); Carbon Dioxide 29 mmol/L (22-32); Chloride 97 mmol/L (98-107); Estimated Glomerular Filt Rate > 60 mL/min (>60); Globulin 3.3 g/dL (1.7-4.1); Glucose 98 mg/dL (80-110); HEMOLYSIS < 15 (0-50); Lactate (Lactic Acid) 0.9 mmol/L (0.7-2.1); Potassium 3.9 mmol/L (3.4-5.1); Sodium 135 mmol/L (137-145); Total Protein 7.5 g/dL (6.3-8.2)
[2022-09-12 17:59] LABS: NT-proBNP (BNP-Adult 18+) 102 pg/mL (<125); Troponin I < 0.012 ng/mL (0.01-0.034)
[2022-09-12 18:05] LABS: COVID19 -Nasal RAPID Negative (Negative)
[2022-09-12 19:05] VITALS: BP 112/73; PULSE 66; RESP 16; O2SAT 97
== END 2022-09-12 21:04 | disposition left against medical advice (07) ==
PROVIDERS: Emergency Medicine; Emergency Provider Emergency Medicine; PCP Family Medicine
DX: R06.02 Shortness of breath (principal); Z20.822 Contact with and (suspected) exposure to COVID-19
CPT/HCPCS: 71045; 80053; 83605; 83880; 84484; 85025; 85610; 87635; 93005; 93010; 99283; C9803

== ENCOUNTER 2023-01-11 21:54 | Emergency (ER) | payer OTHER, SELFPAY ==
[2023-01-11] VITALS (34 sets, daily range): BP systolic 40–118; BP diastolic 25–59; PULSE 41–79; RESP 18–36; TEMP 33.9–35; O2SAT 89–98
--- NOTE | 2023-01-11 22:04 | ED_ITS ---
HPI - General Adult General Chief complaint: Cardiac Arrest/CPR Stated complaint: Code Time Seen by Provider: 01/11/23 22:03 Source: family and EMS Mode of arrival: EMS Limitations: altered mental status History of Present Illness HPI narrative: Patient is a 62-year-old female who arrived by EMS with CPR in progress. They were called to the patient's residence by family. Per EMS report they received a call from the family because the patient was unresponsive. Apparently the patient's family went to check on her approximately 30 minutes prior to calling EMS. She was reported to be unarousable that time however EMS was not called until they went back in and checked on her again and found that they could not wake her up. EMS state that when they found her she had no pulse. CPR was administered. Patient was intubated. She is received a total of 3 mg of epinephrine in 1 mg aliquots per ACLS protocol prior to arrival here in the ER. After 2 mg of epinephrine they did obtain ROSC. Patient was being transported to [facility] when the patient became pulseless once again. She was in [facility]. She received 1 mg of epinephrine just prior to arrival here in the ER. There was no signs of any trauma. The only medical history we had was provided by the family to EMS in his reported that she has a history of heart failure. Upon arrival patient was receiving CPR and respirations were by bag-valve mask. EMS reports that there has been no spontaneous movement by the patient. She received no induction or paralytic medications for the intubation. Patient is unable to provide any HPI Related Data Home Medications Medication Instructions Recorded Confirmed clonidine HCl PO 04/15/19 09/03/21 Previous Rx's Medication Instructions Recorded empagliflozin 10 mg tablet 10 mg PO DAILY #30 tabs 06/05/22 (Jardiance) Allergies Allergy/AdvReac Type Severity Reaction Status Date / Time No Known Drug Allergies Allergy Verified 09/12/22 17:03 Review of Systems Review of Systems ROS Unobtainable: Unobtainable due to medical condition Patient History Medical History Heart failure HTN (hypertension) Rhinorrhea Sinus congestion UTI (urinary tract infection) Social History Smoking Status: Former smoker Smoking Status: Former smoker alcohol intake frequency: a few times a week Substance Use Type: does not use Exam Initial Vital Signs Initial Vital Signs: Vital Signs Temperature 93.4 F L 01/11/23 22:18 Pulse Rate 50 L 01/11/23 22:18 Respiratory Rate 24 01/11/23 22:18 Pulse Oximetry 94 01/11/23 22:18 Const General: in distress and ill appearing Nutritional Appearance: average body habitus [facility] Head: normal to inspection and normocephalic Face and sinus: normal facial exam Mouth: moist mucous membranes Eyes Other: Pupils were fixed at 8 mm and not responsive. Chest Chest: normal inspection of the chest Resp Other: Patient had no respiratory effort. She did have bilateral breath sounds. Was receiving oxygen via an endotracheal tube and bag valve mask. Cardio Other: Patient has no cardiac activity. Was receiving CPR. Femoral pulses were felt with compressions. GI Inspection: normal to inspection and non-distended Other: No rectal tone Back/Spine/Pelvis Other: No signs of trauma on the back. Skin Other: Some mottling of the skin on the abdomen and distal extremities. No rashes. Neuro Other: GCS of 3. No spontaneous movement. Patient had no gag reflex with deep suctioning of the endotracheal tube. No response to painful stimuli. No rectal tone. No corneal reflex. Pupils were fixed and dilated the mm and not reactive Extrem Other: No signs of trauma. No lower extremity edema Psych Appearance: well kempt Procedures Central Line Placement Right Femoral: Prep: gloves Central Line Prep: Povidone-Iodine 1% Ultrasound Used for Placement: No Central Line Lumen Inserted: double Post Procedure: sutured in place Patient Tolerated Procedure: No complications Additional Comments: A 2 port large-bore was placed in the right femoral vein. Scores GCS [place] coma scale eye opening: None [place] coma scale verbal response: None [place] coma scale motor response: None [place] coma scale total score: 3 Course Orders Ordered: ED Orders 01/11/23 21:14 COVID19 -Nasal RAPID Stat 01/11/23 22:00 Complete Blood Count AUTO DIFF Stat Comprehensive Metabolic Panel Stat Ethanol (ETOH) Stat Lactate (Lactic Acid) Stat Lipase Stat Magnesium Stat NT-proBNP (BNP-Adult 18+) Stat Phosphorous Stat Troponin & CK Cardiac Panel Stat 01/11/23 22:05 XR chest 1V Stat Arterial Blood Gas Stat EKG-12 Lead Stat 01/11/23 22:08 XR abdomen 1V Stat 01/11/23 22:13 Ammonia (NH3) Stat 01/11/23 22:45 Urinalysis and Microscopic Stat Urine Drug Screen, Rapid Stat 01/11/23 22:50 Arterial Blood Gas Stat 01/11/23 22:56 XR abdomen 1V Stat 01/12/23 00:01 Arterial Blood Gas Stat 01/12/23 00:16 ABG [Arterial Blood Gas] Stat 01/12/23 00:30 ETOH [Ethanol (ETOH)] Stat Sodium Chloride (Normal Saline 0.9%) 1,000 mls @ 125 mls/hr IV CONT MARIPOSA Last Infusion: 01/12/23 02:35 Dose: 0 mls/hr Documented By: Admin: 01/12/23 00:15 Dose: 125 mls/hr Documented By: BS NOREPINEPHRINE BITARTRATE/D5W (Levophed) 4 mg in 250 mls @ 18.75 mls/hr IV TITRATE MARIPOSA; Protocol Last Titration: 01/12/23 02:35 Dose: 0 mcg/min, 0 mls/hr Documented By: Titration: 01/11/23 22:53 Dose: 15 mcg/min, 56.25 mls/hr Documented By: Titration: 01/11/23 22:39 Dose: 20 mcg/min, 75 mls/hr Documented By: Titration: 01/11/23 22:35 Dose: 40 mcg/min, 150 mls/hr Documented By: Titration: 01/11/23 22:32 Dose: 20 mcg/min, 75 mls/hr Documented By: Titration: 01/11/23 22:30 Dose: 10 mcg/min, 37.5 mls/hr Documented By: Admin: 01/11/23 22:22 Dose: 5 mcg/min, 18.75 mls/hr Documented By: RL Dopamine HCl/Dextrose (Dopamine 400 Mg-D5w 250 Ml) 400 mg in 250 mls @ 14.25 mls/hr IV TITRATE MARIPOSA; Protocol Last Titration: 01/12/23 02:36 Dose: 0 mcg/kg/min, 0 mls/hr Documented By: Titration: 01/12/23 00:48 Dose: 12 mcg/kg/min, 34.2 mls/hr Documented By: Admin: 01/11/23 22:37 Dose: 5 mcg/kg/min, 14.25 mls/hr Documented By: SU Discontinued Medications Sodium Chloride (Normal Saline 0.9%) 1,000 mls @ 1,000 mls/hr IV BOLUS ONE Stop: 01/12/23 01:17 Last Infusion: 01/12/23 00:00 Dose: 0 mls/hr Documented By: Admin: 01/11/23 23:00 Dose: 1,000 mls/hr Documented By: SU Vital Signs Vital signs: Vital Signs - 8 hr 01/11/23 22:18 01/11/23 22:21 01/11/23 22:21 Temperature 93.4 F L 93.9 F L Pulse Rate 50 L 47 L Respiratory Rate 24 18 Blood Pressure 44/26 L Pulse Oximetry 94 97 01/11/23 22:25 01/11/23 22:25 01/11/23 22:30 Temperature 94.5 F L 94.8 F L Pulse Rate 43 L 41 L Respiratory Rate 18 27 H Blood Pressure 40/25 L Pulse Oximetry 96 01/11/23 22:33 01/11/23 22:33 01/11/23 22:35 Temperature 94.8 F L 95.0 F L Pulse Rate 41 L 41 L Respiratory Rate 30 H 24 Blood Pressure 44/29 L Pulse Oximetry 95 01/11/23 22:35 01/11/23 22:38 01/11/23 22:38 Temperature 94.8 F L Pulse Rate 42 L Respiratory Rate 32 H Blood Pressure 52/34 L 71/41 L Pulse Oximetry 97 01/11/23 22:39 01/11/23 22:39 01/11/23 22:40 Temperature 94.8 F L 94.8 F L Pulse Rate 44 L 46 L Respiratory Rate 26 H 25 H Blood Pressure 74/45 L Pulse Oximetry 97 96 01/11/23 22:43 01/11/23 22:43 01/11/23 22:45 Temperature 94.8 F L Pulse Rate 60 Respiratory Rate 34 H Blood Pressure 87/52 L 93/50 L Pulse Oximetry 95 01/11/23 22:45 01/11/23 22:48 01/11/23 22:48 Temperature 94.6 F L 94.5 F L Pulse Rate 62 66 Respiratory Rate 36 H 36 H Blood Pressure 101/55 L Pulse Oximetry 98 97 01/11/23 22:50 01/11/23 22:50 01/11/23 22:53 Temperature 94.3 F L Pulse Rate 69 Respiratory Rate 36 H Blood Pressure 105/58 L 106/57 L Pulse Oximetry 97 01/11/23 22:53 01/11/23 22:55 01/11/23 22:55 Temperature 94.1 F L 94.1 F L Pulse Rate 71 69 Respiratory Rate 23 22 Blood Pressure 94/50 L Pulse Oximetry 97 97 01/11/23 22:58 01/11/23 22:58 01/11/23 23:00 Temperature 93.9 F L Pulse Rate 65 Respiratory Rate 23 Blood Pressure 81/47 L 75/44 L Pulse Oximetry 95 01/11/23 23:00 01/11/23 23:03 01/11/23 23:03 Temperature 93.9 F L 93.9 F L Pulse Rate 63 66 Respiratory Rate 21 22 Blood Pressure 84/48 L Pulse Oximetry 95 94 01/11/23 23:05 01/11/23 23:05 01/11/23 23:08 Temperature 93.7 F L 93.7 F L Pulse Rate 68 71 Respiratory Rate 29 H 22 Blood Pressure 93/50 L Pulse Oximetry 95 96 01/11/23 23:08 01/11/23 23:10 01/11/23 23:10 Temperature 93.6 F L Pulse Rate 72 Respiratory Rate 18 Blood Pressure 104/56 L 106/58 L Pulse Oximetry 96 01/11/23 23:13 01/11/23 23:13 01/11/23 23:15 Temperature 93.4 F L Pulse Rate 73 Respiratory Rate 18 Blood Pressure 105/59 L 108/55 L Pulse Oximetry 96 01/11/23 23:15 01/11/23 23:18 01/11/23 23:18 Temperature 93.4 F L 93.4 F L Pulse Rate 73 77 Respiratory Rate 18 18 Blood Pressure 113/56 L Pulse Oximetry 95 96 01/11/23 23:20 01/11/23 23:20 01/11/23 23:23 Temperature 93.2 F L 93.2 F L Pulse Rate 78 79 Respiratory Rate 18 18 Blood Pressure 114/58 L Pulse Oximetry 95 96 01/11/23 23:23 01/11/23 23:25 01/11/23 23:25 Temperature 93.2 F L Pulse Rate 79 Respiratory Rate 18 Blood Pressure 118/59 L 118/58 L Pulse Oximetry 96 01/11/23 23:28 01/11/23 23:28 01/11/23 23:30 Temperature 93.0 F L 93.0 F L Pulse Rate 79 79 Respiratory Rate 18 18 Blood Pressure 115/56 L Pulse Oximetry 96 96 01/11/23 23:50 01/11/23 23:53 01/11/23 23:53 Temperature 93.0 F L 93.0 F L Pulse Rate 76 76 Respiratory Rate 22 22 Blood Pressure 108/55 L Pulse Oximetry 92 92 01/11/23 23:55 01/11/23 23:55 01/11/23 23:58 Temperature 93.0 F L 93.0 F L Pulse Rate 75 76 Respiratory Rate 22 22 Blood Pressure 106/59 L Pulse Oximetry 91 89 L 01/11/23 23:58 01/12/23 00:00 01/12/23 00:00 Temperature 93.0 F L Pulse Rate 76 Respiratory Rate 22 Blood Pressure 112/59 L 110/58 L Pulse Oximetry 89 L 01/12/23 00:03 01/12/23 00:03 01/12/23 00:05 Temperature 93.0 F L Pulse Rate 76 Respiratory Rate 22 Blood Pressure 110/57 L 109/55 L Pulse Oximetry 89 L 01/12/23 00:05 01/12/23 00:08 01/12/23 00:08 Temperature 93.0 F L 93.0 F L Pulse Rate 77 78 Respiratory Rate 91 H 27 H Blood Pressure 104/54 L Pulse Oximetry 89 L 90 L 01/12/23 00:10 01/12/23 00:10 01/12/23 00:13 Temperature 93.0 F L 93.0 F L Pulse Rate 78 79 Respiratory Rate 22 22 Blood Pressure 107/53 L Pulse Oximetry 90 L 89 L 01/12/23 00:13 01/12/23 00:15 01/12/23 00:15 Temperature 93.0 F L Pulse Rate 79 Respiratory Rate 22 Blood Pressure 101/52 L 102/52 L Pulse Oximetry 90 L 01/12/23 00:18 01/12/23 00:18 01/12/23 00:20 Temperature 93.0 F L Pulse Rate 80 Respiratory Rate 22 Blood Pressure 101/51 L 103/52 L Pulse Oximetry 89 L 01/12/23 00:20 01/12/23 00:23 01/12/23 00:23 Temperature 93.0 F L 93.2 F L Pulse Rate 80 81 Respiratory Rate 22 22 Blood Pressure 95/57 L Pulse Oximetry 85 L 87 L 01/12/23 00:25 01/12/23 00:25 01/12/23 00:30 Temperature 93.2 F L 93.2 F L Pulse Rate 81 82 Respiratory Rate 22 23 Blood Pressure 97/52 L Pulse Oximetry 88 L 89 L 01/12/23 00:35 01/12/23 00:40 01/12/23 00:42 Temperature 93.2 F L 93.2 F L Pulse Rate 82 82 Respiratory Rate 22 40 H Blood Pressure 84/53 L Pulse Oximetry 90 L 90 L 01/12/23 00:42 01/12/23 00:45 01/12/23 00:45 Temperature 93.2 F L 93.4 F L Pulse Rate 82 82 Respiratory Rate 22 22 Blood Pressure 87/53 L Pulse Oximetry 89 L 89 L 01/12/23 00:46 01/12/23 00:46 01/12/23 00:47 Temperature 93.4 F L 93.4 F L Pulse Rate 82 82 Respiratory Rate 22 22 Blood Pressure 83/50 L Pulse Oximetry 89 L 90 L 01/12/23 00:47 01/12/23 00:50 01/12/23 00:50 Temperature 93.4 F L Pulse Rate 88 Respiratory Rate 22 Blood Pressure 85/53 L 89/52 L Pulse Oximetry 91 01/12/23 00:53 01/12/23 00:53 01/12/23 00:55 Temperature 93.4 F L Pulse Rate 94 H Respiratory Rate 22 Blood Pressure 89/55 L 91/60 Pulse Oximetry 92 01/12/23 00:55 01/12/23 00:57 01/12/23 00:57 Temperature 93.4 F L 93.4 F L Pulse Rate 96 H 98 H Respiratory Rate 22 22 Blood Pressure 91/60 Pulse Oximetry 92 93 01/12/23 01:00 01/12/23 01:00 Temperature 93.4 F L Pulse Rate 100 H Respiratory Rate 22 Blood Pressure 89/58 L Pulse Oximetry 92 Medical Decision Making Medical Records Medical records reviewed: Yes I reviewed the patient's medical records. Lab Data Lab results reviewed: Yes I reviewed the patient's lab results. 01/11/23 22:00 01/11/23 22:00 Labs: Lab Results 01/11/23 01/11/23 01/11/23 Range/Units 21:14 22:00 22:00 WBC 14.5 H (4.5-11.0) X10^3/uL RBC 3.88 L (4.0-5.2) X10^6/uL Hgb 11.9 L (12.0-16.0) g/dL Hct 39.3 (36-46) % MCV 101.5 H (80-100) fL MCH 30.6 (26-34) PG MCHC 30.2 (30-36) % RDW 15.0 H (11.6-14.8) % Plt Count 249 (150-400) X10^3/uL Neut % (Auto) Not Reportable Lymph % (Auto) Not Reportable Cook % (Auto) Not Reportable Eos % (Auto) Not Reportable Baso % (Auto) Not Reportable Lymph # (Auto) Not Reportable Cook # (Auto) Not Reportable Baso # (Auto) Not Reportable Total Counted 100 Seg Neutrophils % 31.0 L (38-70) % Band Neutrophils % 5.0 (3-7) % Lymphocytes % (Manual) 54.0 H (25-45) % Monocytes % (Manual) 4.0 (2-11) % Eosinophils % (Manual) 3.0 (2-4) % Metamyelocytes % 2.0 H (-0) % Myelocytes % 1.0 H (-0) % Neutrophils # (Manual) 5220 (0208-7326) /uL Nucleated RBCs 1 H ( - 0) #/Diff RBC Morphology See below Anisocytosis 1+ H Macrocytosis 1+ H ABG pH (7.35-7.45) ABG pCO2 (35-45) mmHg ABG pO2 (80-100) mmHg ABG HCO3 (23-27) mmol/L ABG Total CO2 (23-27) mmol/L ABG O2 Saturation (95-100) % ABG Base Excess (-2-3) mmol/L FiO2 Sodium 137 (137-145) mmol/L Potassium 5.5 H (3.4-5.1) mmol/L Chloride 101 (98-107) mmol/L Carbon Dioxide 11 L (22-32) mmol/L BUN 16 (7-17) mg/dL Creatinine 1.30 H (0.52-1.04) mg/dL Estimated GFR 46 L (>60) mL/min BUN/Creatinine Ratio 12.3 (6-22) Glucose 184 H (80-110) mg/dL Lactate (0.7-2.1) mmol/L Calcium 8.1 L (8.4-10.2) mg/dL Phosphorus 12.8 H* (2.8-4.1) mg/dL Magnesium 3.3 H (1.6-2.3) mg/dL Total Bilirubin 0.4 (0.2-1.3) mg/dL AST 3218 H (14-36) IU/L ALT 3076 H (<35) IU/L Alkaline Phosphatase 116 (38-126) U/L Ammonia (9-30) umol/L Total Creatine Kinase 115 (30-135) U/L CK-MB (CK-2) 2.21 (<2.37) ng/mL CK-MB (CK-2) Rel Index 1.9 (1.5-5.0) % Troponin I < 0.012 (0.01-0.034) ng/mL NT-Pro-B Natriuret Pep 410 H (<125) pg/mL Total Protein 6.3 (6.3-8.2) g/dL Albumin 3.7 (3.5-5.0) g/dL Globulin 2.6 (1.7-4.1) g/dL Albumin/Globulin Ratio 1.4 (1.0-2.8) Lipase 496 H (23-300) U/L Urine Color Urine Appearance Urine pH (4.5-8.0) Ur Specific [place] (1.000-1.035) Urine Protein (Negative) Urine Glucose (UA) (Negative) g/dL Urine Ketones (NEGATIVE) Urine Occult Blood (Negative) Urine Nitrate (Negative) Urine Bilirubin (NEGATIVE) Urine Urobilinogen (0.2) E.U./dL Ur Leukocyte Esterase (NEGATIVE) Urine RBC (0-5/HPF) Urine WBC (0-5/HPF) Ur Squamous Epith Cells (0-5/HPF) Urine Bacteria (None) Ur Culture Indicated? Micro UA Comment U Opiates 300ng/mL cut (Negative) Ur Oxycodone Screen (Negative) Urine Methadone Screen (Negative) Ur Barbiturates Screen (Negative) U Tricyclic Antidepress (Negative) Ur Phencyclidine Scrn (Negative) Ur Amphetamines Screen (Negative) U Methamphetamines Scrn (Negative) Ur MDMA Scrn (Ecstasy) (Negative) U Benzodiazepines Scrn (Negative) Urine Cocaine Screen (Negative) U Marijuana (THC) Screen (Negative) Ethyl Alcohol ( - 10) mg/dL SARS-CoV-2 (PCR) Negative (Negative) 01/11/23 01/11/23 01/11/23 Range/Units 22:00 22:00 22:13 WBC (4.5-11.0) X10^3/uL RBC (4.0-5.2) X10^6/uL Hgb (12.0-16.0) g/dL Hct (36-46) % MCV (80-100) fL MCH (26-34) PG MCHC (30-36) % RDW (11.6-14.8) % Plt Count (150-400) X10^3/uL Neut % (Auto) Lymph % (Auto) Cook % (Auto) Eos % (Auto) Baso % (Auto) Lymph # (Auto) Cook # (Auto) Baso # (Auto) Total Counted Seg Neutrophils % (38-70) % Band Neutrophils % (3-7) % Lymphocytes % (Manual) (25-45) % Monocytes % (Manual) (2-11) % Eosinophils % (Manual) (2-4) % Metamyelocytes % (-0) % Myelocytes % (-0) % Neutrophils # (Manual) (9768-7559) /uL Nucleated RBCs ( - 0) #/Diff RBC Morphology Anisocytosis Macrocytosis ABG pH (7.35-7.45) ABG pCO2 (35-45) mmHg ABG pO2 (80-100) mmHg ABG HCO3 (23-27) mmol/L ABG Total CO2 (23-27) mmol/L ABG O2 Saturation (95-100) % ABG Base Excess (-2-3) mmol/L FiO2 Sodium (137-145) mmol/L Potassium (3.4-5.1) mmol/L Chloride (98-107) mmol/L Carbon Dioxide (22-32) mmol/L BUN (7-17) mg/dL Creatinine (0.52-1.04) mg/dL Estimated GFR (>60) mL/min BUN/Creatinine Ratio (6-22) Glucose (80-110) mg/dL Lactate 13.8 H* (0.7-2.1) mmol/L Calcium (8.4-10.2) mg/dL Phosphorus (2.8-4.1) mg/dL Magnesium (1.6-2.3) mg/dL Total Bilirubin (0.2-1.3) mg/dL AST (14-36) IU/L ALT (<35) IU/L Alkaline Phosphatase (38-126) U/L Ammonia 134 H (9-30) umol/L Total Creatine Kinase (30-135) U/L CK-MB (CK-2) (<2.37) ng/mL CK-MB (CK-2) Rel Index (1.5-5.0) % Troponin I (0.01-0.034) ng/mL NT-Pro-B Natriuret Pep (<125) pg/mL Total Protein (6.3-8.2) g/dL Albumin (3.5-5.0) g/dL Globulin (1.7-4.1) g/dL Albumin/Globulin Ratio (1.0-2.8) Lipase (23-300) U/L Urine Color Urine Appearance Urine pH (4.5-8.0) Ur Specific [place] (1.000-1.035) Urine Protein (Negative) Urine Glucose (UA) (Negative) g/dL Urine Ketones (NEGATIVE) Urine Occult Blood (Negative) Urine Nitrate (Negative) Urine Bilirubin (NEGATIVE) Urine Urobilinogen (0.2) E.U./dL Ur Leukocyte Esterase (NEGATIVE) Urine RBC (0-5/HPF) Urine WBC (0-5/HPF) Ur Squamous Epith Cells (0-5/HPF) Urine Bacteria (None) Ur Culture Indicated? Micro UA Comment U Opiates 300ng/mL cut (Negative) Ur Oxycodone Screen (Negative) Urine Methadone Screen (Negative) Ur Barbiturates Screen (Negative) U Tricyclic Antidepress (Negative) Ur Phencyclidine Scrn (Negative) Ur Amphetamines Screen (Negative) U Methamphetamines Scrn (Negative) Ur MDMA Scrn (Ecstasy) (Negative) U Benzodiazepines Scrn (Negative) Urine Cocaine Screen (Negative) U Marijuana (THC) Screen (Negative) Ethyl Alcohol 113 H ( - 10) mg/dL SARS-CoV-2 (PCR) (Negative) 01/11/23 01/11/23 01/11/23 Range/Units 22:45 22:45 22:50 WBC (4.5-11.0) X10^3/uL RBC (4.0-5.2) X10^6/uL Hgb (12.0-16.0) g/dL Hct (36-46) % MCV (80-100) fL MCH (26-34) PG MCHC (30-36) % RDW (11.6-14.8) % Plt Count (150-400) X10^3/uL Neut % (Auto) Lymph % (Auto) Cook % (Auto) Eos % (Auto) Baso % (Auto) Lymph # (Auto) Cook # (Auto) Baso # (Auto) Total Counted Seg Neutrophils % (38-70) % Band Neutrophils % (3-7) % Lymphocytes % (Manual) (25-45) % Monocytes % (Manual) (2-11) % Eosinophils % (Manual) (2-4) % Metamyelocytes % (-0) % Myelocytes % (-0) % Neutrophils # (Manual) (6870-4625) /uL Nucleated RBCs ( - 0) #/Diff RBC Morphology Anisocytosis Macrocytosis ABG pH 6.95 L* (7.35-7.45) ABG pCO2 47.6 H (35-45) mmHg ABG pO2 212 H (80-100) mmHg ABG HCO3 10 L (23-27) mmol/L ABG Total CO2 12 L (23-27) mmol/L ABG O2 Saturation 99 (95-100) % ABG Base Excess -22.0 L (-2-3) mmol/L FiO2 100 Sodium (137-145) mmol/L Potassium (3.4-5.1) mmol/L Chloride (98-107) mmol/L Carbon Dioxide (22-32) mmol/L BUN (7-17) mg/dL Creatinine (0.52-1.04) mg/dL Estimated GFR (>60) mL/min BUN/Creatinine Ratio (6-22) Glucose (80-110) mg/dL Lactate (0.7-2.1) mmol/L Calcium (8.4-10.2) mg/dL Phosphorus (2.8-4.1) mg/dL Magnesium (1.6-2.3) mg/dL Total Bilirubin (0.2-1.3) mg/dL AST (14-36) IU/L ALT (<35) IU/L Alkaline Phosphatase (38-126) U/L Ammonia (9-30) umol/L Total Creatine Kinase (30-135) U/L CK-MB (CK-2) (<2.37) ng/mL CK-MB (CK-2) Rel Index (1.5-5.0) % Troponin I (0.01-0.034) ng/mL NT-Pro-B Natriuret Pep (<125) pg/mL Total Protein (6.3-8.2) g/dL Albumin (3.5-5.0) g/dL Globulin (1.7-4.1) g/dL Albumin/Globulin Ratio (1.0-2.8) Lipase (23-300) U/L Urine Color Yellow Urine Appearance Clear Urine pH 5.5 (4.5-8.0) Ur Specific [place] 1.025 (1.000-1.035) Urine Protein Negative (Negative) Urine Glucose (UA) Negative (Negative) g/dL Urine Ketones Negative (NEGATIVE) Urine Occult Blood Negative (Negative) Urine Nitrate Negative (Negative) Urine Bilirubin Negative (NEGATIVE) Urine Urobilinogen 0.2 (0.2) E.U./dL Ur Leukocyte Esterase Negative (NEGATIVE) Urine RBC None seen (0-5/HPF) Urine WBC None seen (0-5/HPF) Ur Squamous Epith Cells 1-5 /hpf (0-5/HPF) Urine Bacteria None seen (None) Ur Culture Indicated? Cult not indicated Micro UA Comment * U Opiates 300ng/mL cut Negative (Negative) Ur Oxycodone Screen Negative (Negative) Urine Methadone Screen Negative (Negative) Ur Barbiturates Screen Negative (Negative) U Tricyclic Antidepress Negative (Negative) Ur Phencyclidine Scrn Negative (Negative) Ur Amphetamines Screen Negative (Negative) U Methamphetamines Scrn Negative (Negative) Ur MDMA Scrn (Ecstasy) Negative (Negative) U Benzodiazepines Scrn Negative (Negative) Urine Cocaine Screen Negative (Negative) U Marijuana (THC) Screen Negative (Negative) Ethyl Alcohol ( - 10) mg/dL SARS-CoV-2 (PCR) (Negative) 01/12/23 01/12/23 Range/Units 00:30 00:30 WBC (4.5-11.0) X10^3/uL RBC (4.0-5.2) X10^6/uL Hgb (12.0-16.0) g/dL Hct (36-46) % MCV (80-100) fL MCH (26-34) PG MCHC (30-36) % RDW (11.6-14.8) % Plt Count (150-400) X10^3/uL Neut % (Auto) Lymph % (Auto) Cook % (Auto) Eos % (Auto) Baso % (Auto) Lymph # (Auto) Cook # (Auto) Baso # (Auto) Total Counted Seg Neutrophils % (38-70) % Band Neutrophils % (3-7) % Lymphocytes % (Manual) (25-45) % Monocytes % (Manual) (2-11) % Eosinophils % (Manual) (2-4) % Metamyelocytes % (-0) % Myelocytes % (-0) % Neutrophils # (Manual) (8025-7896) /uL Nucleated RBCs ( - 0) #/Diff RBC Morphology Anisocytosis Macrocytosis ABG pH (7.35-7.45) ABG pCO2 (35-45) mmHg ABG pO2 (80-100) mmHg ABG HCO3 (23-27) mmol/L ABG Total CO2 (23-27) mmol/L ABG O2 Saturation (95-100) % ABG Base Excess (-2-3) mmol/L FiO2 Sodium (137-145) mmol/L Potassium (3.4-5.1) mmol/L Chloride (98-107) mmol/L Carbon Dioxide (22-32) mmol/L BUN (7-17) mg/dL Creatinine (0.52-1.04) mg/dL Estimated GFR (>60) mL/min BUN/Creatinine Ratio (6-22) Glucose (80-110) mg/dL Lactate 10.0 H* (0.7-2.1) mmol/L Calcium (8.4-10.2) mg/dL Phosphorus (2.8-4.1) mg/dL Magnesium (1.6-2.3) mg/dL Total Bilirubin (0.2-1.3) mg/dL AST (14-36) IU/L ALT (<35) IU/L Alkaline Phosphatase (38-126) U/L Ammonia (9-30) umol/L Total Creatine Kinase (30-135) U/L CK-MB (CK-2) (<2.37) ng/mL CK-MB (CK-2) Rel Index (1.5-5.0) % Troponin I (0.01-0.034) ng/mL NT-Pro-B Natriuret Pep (<125) pg/mL Total Protein (6.3-8.2) g/dL Albumin (3.5-5.0) g/dL Globulin (1.7-4.1) g/dL Albumin/Globulin Ratio (1.0-2.8) Lipase (23-300) U/L Urine Color Urine Appearance Urine pH (4.5-8.0) Ur Specific [place] (1.000-1.035) Urine Protein (Negative) Urine Glucose (UA) (Negative) g/dL Urine Ketones (NEGATIVE) Urine Occult Blood (Negative) Urine Nitrate (Negative) Urine Bilirubin (NEGATIVE) Urine Urobilinogen (0.2) E.U./dL Ur Leukocyte Esterase (NEGATIVE) Urine RBC (0-5/HPF) Urine WBC (0-5/HPF) Ur Squamous Epith Cells (0-5/HPF) Urine Bacteria (None) Ur Culture Indicated? Micro UA Comment U Opiates 300ng/mL cut (Negative) Ur Oxycodone Screen (Negative) Urine Methadone Screen (Negative) Ur Barbiturates Screen (Negative) U Tricyclic Antidepress (Negative) Ur Phencyclidine Scrn (Negative) Ur Amphetamines Screen (Negative) U Methamphetamines Scrn (Negative) Ur MDMA Scrn (Ecstasy) (Negative) U Benzodiazepines Scrn (Negative) Urine Cocaine Screen (Negative) U Marijuana (THC) Screen (Negative) Ethyl Alcohol 75 H ( - 10) mg/dL SARS-CoV-2 (PCR) (Negative) Imaging Data Chest x-ray: Radiologist's Impression: PROCEDURE:? XR CHEST 1V ? INDICATIONS:? CPR ? TECHNIQUE:? One view of the chest was acquired.? ? COMPARISON:? [facility], CR, XR CHEST 1V, 09/12/2022, 17:05.? [facility], CR, XR CHEST 2V, 06/05/2022, 10:39. ? FINDINGS:? ? Surgical changes and devices:? Endotracheal tube in the upper trachea.? Defibrillator pads. ? Lungs and pleura:? Left costophrenic angle is outside the field of view.? Prominent pulmonary markings.? No pleural effusions or pneumothorax.? ? Mediastinum:? Mediastinal contours appear normal.? Heart size is at the upper limits of normal.? ? Bones and chest wall:? No suspicious bony lesions.? Overlying soft tissues appear unremarkable.? ? IMPRESSION:? Prominent pulmonary markings.? This could represent pulmonary edema. ? Endotracheal tube in the upper trachea.? Abdominal x-ray: Radiologist's Impression: PROCEDURE:? XR ABDOMEN 1V ? INDICATIONS:? resuscitation ? TECHNIQUE:? One view of the abdomen acquired.? ? COMPARISON:? None. ? FINDINGS:? ? Surgical changes and devices:? Enteric tube coiled in the esophagus. ? Bowel:? Bowel gas pattern is normal.? Prominent gastric bubble.? ? Soft tissues:? No suspicious abdominal calcifications.? Visualized solid organ contours appear normal in size.? ? Bones:? No suspicious bony lesions.? ? IMPRESSION:? Enteric tube coiled in the esophagus. ? Finding was relayed to the Emergency Department at time of dictation. xr abd: Radiologist's Impression: PROCEDURE:? XR ABDOMEN 1V ? INDICATIONS:? OG placement ? TECHNIQUE:? One view of the abdomen acquired.? ? COMPARISON:? [facility], CR, XR ABDOMEN 1V, 01/11/2023, 21:52. ? FINDINGS:? ? Surgical changes and devices:? Oral gastric tube has been replaced and is now in the stomach.? Defibrillator pads. ? Bowel:? Prominent gastric bubble.? Fecal residue seen in the right colon. ? Soft tissues:? No suspicious abdominal calcifications.? Visualized solid organ contours appear normal in size.? ? Bones:? No suspicious bony lesions.? ? IMPRESSION:? Orogastric tube has been replaced and is now in the stomach. ECG Data Attestation: I personally reviewed and interpreted this ECG as follows: Interpretation: Sinus bradycardia Ventricular rate of 53 Right bundle branch block QRS 146 milliseconds QTC 547 Inverted T-waves V1 V2 V3 No ST elevations MDM Narrative Medical decision making narrative: Patient has had no spontaneous neuro activity per EMS prior to arrival. Was receiving CPR upon arrival. ACLS protocol was followed. Patient was given 1 dose of epinephrine. On the 2nd false check the patient did have a pulse. She also had fairly strong cardiac activity on bedside ultrasound. She would equal breath sounds bilaterally. Chest x-ray shows endotracheal tube in appropriate position. There was no signs of trauma. Patient eventually needed to be started on Levophed which was maxed out and then eventually started on dopamine. Patient had no spontaneous respiratory effort. Initial ABG shows a severe acidosis of 6.9. Labs do show an elevated alcohol level which improved with time. I have low suspicion that the patient's neurologic condition here in the emergency department is secondary to this. Patient had no respiratory effort over ventilator. Attempted to contact [facility], [facility], [facility], [facility] and [facility]. None of these facilities had ICU bed capability. I did talk with the patient's daughter over the phone. When they arrived here in the emergency department both the patient's daughter and the son were at bedside. I talked with them about the severity of the patient's illness. They spent some time with the patient. I informed them that I had concern about the patient's neurologic status given her lack of rectal tone, lack of gag reflex, lack of response to painful stimuli and lack of a corneal reflex. I discussed with them that we were supporting her with both blood pressure medication and also the ventilator. I informed them that I could not find a easily reversible cause for her presenting symptoms this evening. Review of her medical record does show that she has fairly significant congestive heart failure. The daughter states that she was supposed to be on a medication for this but it was too expensive so she is not been taking it. I am unsure as to what medication this was. Family did spend some time with the patient. We have further discussions about her condition and my concern that she was not going to make a meaningful neurologic recovery. The family did expressed understanding of this. They did state that if her condition were to worsen that they would not want us to start CPR once again and they were also in agreement that we would not escalate care. Nursing staff and myself did have discussions with organ procurement. Given the capabilities at our hospital and her unstable condition the organ procurement organization thought that they would need approximately 12 hours in order to establish whether or not the patient would be a candidate. I felt that it would be unlikely the patient would survive for this long. The decision was made not to pursue organ procurement because of this. I also discuss this with the family as well and they expressed understanding and agreement. They agreed that we should start to deescalate our care. They understand that by doing so the patient would most likely not from this. We initially turned off the pre ssure medications. She did become hypotensive afterwards. We then weaned her off the vent. Eventually patient's her come to her illness. Time of was 0303 hours. Critical Care Time Critical Care Time Critical Care Time: Yes Total Critical Care Time: 120 Attestation: The high probability of a clinically significant, sudden or life threatening deterioration of the [cardiovascular, respiratory] system(s) required my full and direct attention, intervention and personal management. The aggregate critical care time was [120] minutes. This time is in addition to time spent performing reported procedures but includes the following: [x] Data Review and interpretation [x] Patient assessment and monitoring of vital signs [x] Documentation [x] Medication orders and management Discharge Plan Departure Patient Disposition: Clinical Impression: Cardiac arrest, Respiratory failure, Heart failure, Blood-alcohol level elevation
--- NOTE | 2023-01-11 22:05 | DI.RAD.S_ITS ---
PROCEDURE: XR CHEST 1V INDICATIONS: CPR TECHNIQUE: One view of the chest was acquired. COMPARISON: [facility], CR, XR CHEST 1V, 09/12/2022, 17:05. [facility], CR, XR CHEST 2V, 06/05/2022, 10:39. FINDINGS: Surgical changes and devices: Endotracheal tube in the upper trachea. Defibrillator pads. Lungs and pleura: Left costophrenic angle is outside the field of view. Prominent pulmonary markings. No pleural effusions or pneumothorax. Mediastinum: Mediastinal contours appear normal. Heart size is at the upper limits of normal. Bones and chest wall: No suspicious bony lesions. Overlying soft tissues appear unremarkable. IMPRESSION: Prominent pulmonary markings. This could represent pulmonary edema. Endotracheal tube in the upper trachea. Dictated by: Shravan Arana M.D. on 01/11/2023 at 22:27 Approved by: Shravan Arana M.D. on 01/11/2023 at 22:28
--- NOTE | 2023-01-11 22:08 | DI.RAD.S_ITS ---
PROCEDURE: XR ABDOMEN 1V INDICATIONS: resuscitation TECHNIQUE: One view of the abdomen acquired. COMPARISON: None. FINDINGS: Surgical changes and devices: Enteric tube coiled in the esophagus. Bowel: Bowel gas pattern is normal. Prominent gastric bubble. Soft tissues: No suspicious abdominal calcifications. Visualized solid organ contours appear normal in size. Bones: No suspicious bony lesions. IMPRESSION: Enteric tube coiled in the esophagus. Finding was relayed to the Emergency Department at time of dictation. Dictated by: Shravan Arana M.D. on 01/11/2023 at 22:29 Approved by: Shravan Arana M.D. on 01/11/2023 at 22:31
[2023-01-11 22:18] LABS: Hematocrit 39.3 % (36-46); Hemoglobin 11.9 g/dL (12.0-16.0); Mean Corpuscular HGB Conc 30.2 % (30-36); Mean Corpuscular Hemoglobin 30.6 PG (26-34); Mean Corpuscular Volume 101.5 fL (80-100); Platelet Count 249 X10^3/uL (150-400); Red Blood Cell Count 3.88 X10^6/uL (4.0-5.2); White Blood Cell Count 14.5 X10^3/uL (4.5-11.0)
[2023-01-11 22:19] LABS: Add Manual Diff / Slide Review YES
[2023-01-11 22:21] LABS: Ethanol (ETOH) 113 mg/dL
[2023-01-11 22:22] LABS: Albumin 3.7 g/dL (3.5-5.0); Albumin Globulin Ratio 1.4 (1.0-2.8); Alkaline Phosphatase 116 U/L (38-126); BUN Creatinine Ratio 12.3 (6-22); Bilirubin Total 0.4 mg/dL (0.2-1.3); Blood Urea Nitrogen 16 mg/dL (7-17); Calcium 8.1 mg/dL (8.4-10.2); Carbon Dioxide 11 mmol/L (22-32); Chloride 101 mmol/L (98-107); Creatine Kinase 115 U/L (30-135); Estimated Glomerular Filt Rate 46 mL/min (>60); Globulin 2.6 g/dL (1.7-4.1); Glucose 184 mg/dL (80-110); HEMOLYSIS 43 (0-50); Magnesium 3.3 mg/dL (1.6-2.3); Sodium 137 mmol/L (137-145); Total Protein 6.3 g/dL (6.3-8.2)
[2023-01-11] MEDS: NOREPINEPHRINE BITARTRATE/D5W 4 MG/250 ML PLAST..BAG 18.75 MG IV (22:22)
[2023-01-11] MEDS: NOREPINEPHRINE BITARTRATE/D5W 4 MG/250 ML PLAST..BAG 5 MG IV (22:22)
[2023-01-11 22:25] LABS: Potassium 5.5 mmol/L (3.4-5.1)
[2023-01-11 22:29] LABS: Ammonia (NH3) 134 umol/L (9-30)
[2023-01-11 22:31] LABS: Lipase 496 U/L (23-300)
[2023-01-11 22:33] LABS: NT-proBNP (BNP-Adult 18+) 410 pg/mL (<125); Troponin I < 0.012 ng/mL (0.01-0.034)
[2023-01-11 22:34] LABS: COVID19 -Nasal RAPID Negative (Negative)
[2023-01-11] MEDS: DOPAMINE HCL IN DEXTROSE 5 % 400 MG/250 ML PLAST..BAG 14.25 MG IV (22:37)
[2023-01-11 22:38] LABS: CKMB % Relative Index 1.9 % (1.5-5.0); Creatine Kinase MB 2.21 ng/mL (<2.37)
[2023-01-11 22:41] LABS: Lactate (Lactic Acid) 13.8 mmol/L (0.7-2.1)
[2023-01-11 22:42] LABS: Phosphorous 12.8 mg/dL (2.8-4.1)
--- NOTE | 2023-01-11 22:43 | PC.NURSE ---
Addendum entered by Radha Castro R.N. 01/11/23 22:46: Cordis placed in right femoral vein. Original Note: Initials vitals not recorded in EMR due to resuscitation attempts. See scanned records for data.
[2023-01-11 22:54] LABS: Appearance Urine UA CLEAR; Bilirubin Urine UA NEGATIVE (NEGATIVE); Color Urine UA YELLOW; Glucose Urine UA NEGATIVE (Negative); Ketones Urine UA NEGATIVE (NEGATIVE); Leukocyte Esterase Urine UA NEGATIVE (NEGATIVE); Nitrite Urine UA NEGATIVE (Negative); Occult Blood Urine UA NEGATIVE (Negative); Protein Urine UA NEGATIVE (Negative); Specific Gravity Urine UA 1.025 (1.000-1.035); Urobilinogen Urine UA 0.2 E.U./dL (0.2)
[2023-01-11 22:54] LABS: Alanine Aminotransferase 3076 IU/L (<35); Aspartate Aminotransferase 3218 IU/L (14-36)
[2023-01-11 22:55] LABS: pH Urine UA 5.5 (4.5-8.0)
--- NOTE | 2023-01-11 22:56 | DI.RAD.S_ITS ---
PROCEDURE: XR ABDOMEN 1V INDICATIONS: OG placement TECHNIQUE: One view of the abdomen acquired. COMPARISON: [facility], CR, XR ABDOMEN 1V, 01/11/2023, 21:52. FINDINGS: Surgical changes and devices: Oral gastric tube has been replaced and is now in the stomach. Defibrillator pads. Bowel: Prominent gastric bubble. Fecal residue seen in the right colon. Soft tissues: No suspicious abdominal calcifications. Visualized solid organ contours appear normal in size. Bones: No suspicious bony lesions. IMPRESSION: Orogastric tube has been replaced and is now in the stomach. Dictated by: Shravan Arana M.D. on 01/11/2023 at 23:21 Approved by: Shravan Arana M.D. on 01/11/2023 at 23:22
[2023-01-11 22:57] LABS: Ur Creatinine 20 (Normal); Ur Specific Gravity 1.025 (Normal)
[2023-01-11 22:58] LABS: UR Morphine/Opiate cutoff 300 Negative (Negative); Urine Amphetamines Negative (Negative); Urine Barbiturates Negative (Negative); Urine Benzodiazepines Negative (Negative); Urine Cocaine Negative (Negative); Urine MDMA Negative (Negative); Urine Methadone Negative (Negative); Urine Methamphetamines Negative (Negative); Urine Oxycodone Negative (Negative); Urine Phencyclidine Negative (Negative); Urine Tetrahydrocannabinol Negative (Negative); Urine Tricyclic Antidepressant Negative (Negative); Urine pH 5.5 (Normal)
[2023-01-11] MEDS: SODIUM CHLORIDE 0.9% 1,000 ML 1000 ML IV (23:00)
[2023-01-11 23:04] LABS: Bacteria Urine None Seen; Culture Indicated Urine Cult Not Indicated; RBC Urine None Seen (0-5/HPF); Squamous Epithelial Cell Urine 1-5 /HPF (0-5/HPF); WBC Urine None Seen (0-5/HPF)
[2023-01-11 23:12] LABS: Anisocytosis 1+; Neutrophils Absolute Manual 5220 /uL (3000-5900); Nucleated Red Blood Cells 1 #/Diff; Total Cells Counted 100
[2023-01-11 23:13] LABS: Macrocytosis 1+
[2023-01-12] VITALS (23 sets, daily range): BP systolic 83–110; BP diastolic 50–60; PULSE 76–100; RESP 22–91; TEMP 33.9–34.1; O2SAT 85–93
[2023-01-12 00:09] LABS: Fractionated Inspired Oxygen 100; HCO3 ABG 10 mmol/L (23-27); Oxygen Saturation ABG 99 % (95-100); PCO2 ABG 47.6 mmHg (35-45); PO2 ABG 212 mmHg (80-100); TCO2 ABG 12 mmol/L (23-27)
[2023-01-12 00:10] LABS: Reflexed Lactate in 2 Hours Y
[2023-01-12 00:15] LABS: pH ABG 6.95 (7.35-7.45)
[2023-01-12] MEDS: SODIUM CHLORIDE 0.9% 1,000 ML 125 ML IV (00:15)
[2023-01-12 00:53] LABS: Ethanol (ETOH) 75 mg/dL
== END 2023-01-12 04:51 | disposition expired ==
PROVIDERS: Emergency Provider Emergency Medicine; PCP Family Medicine
DX: I50.9 Heart failure, unspecified (principal); I46.9 Cardiac arrest, cause unspecified; J96.90 Respiratory failure, unspecified, unspecified whether with hypoxia or hypercapnia; R78.0 Finding of alcohol in blood; Z20.822 Contact with and (suspected) exposure to COVID-19
CPT/HCPCS: 36415; 36600; 71045; 74018; 80053; 80305; 80320; 81001; 82140; 82550; 82553; 82805; 83605; 83690; 83735; 83880; 84100; 84484; 85007; 85025; 87635; 92950; 93005; 94002; 96365; 96366; 96368; 99284; 99291; 99292; C9803